=== PATIENT | female | born 1940 | race African-American/Black ===

== ENCOUNTER 2017-05-04 13:53 | Observation (INO) | payer MEDICARE, OTHER ==
--- NOTE | 2017-05-04 14:06 | ER Document Report ---
ED Medical Screen (RME) - General Chief Complaint: Hemorrhoids Stated Complaint: HEMMROIDS DR SENT PT OVER Time Seen by Provider: 05/04/17 14:05 Notes: Patient was sent from Dr. Vu's office. Dr. Vu states the patient has a large thrombosed hemorrhoid that is bleeding. He states patient's hemoglobin in November was 11.7 and today in his office it was 9.4. He is asked that we have a surgeon evaluate the patient. TRAVEL OUTSIDE OF THE [place] IN LAST 30 DAYS: No - Related Data Allergies/Adverse Reactions: No Known Allergies Allergy (Verified 05/04/17 13:59) Past Medical History - Social History Frequency of alcohol use: None Drug Abuse: None - Past Medical History Cardiac Medical History: Reports: Hx Hypercholesterolemia, Hx Hypertension Endocrine Medical History: Reports: Hx Diabetes Mellitus Type 2 Renal/ Medical History: Denies: Hx Peritoneal Dialysis GI Medical History: Reports: Hx Gastroesophageal Reflux Disease Past Surgical History: Reports: Hx Breast Surgery - Reduction, Hx Section - x3, Hx Hysterectomy - Immunizations Hx Diphtheria, Pertussis, Tetanus Vaccination: Yes Physical Exam - Vital signs Vitals: Temp Pulse Resp BP Pulse Ox 98.7 F 85 14 155/60 H 97 05/04/17 13:56 05/04/17 13:56 05/04/17 13:56 05/04/17 13:56 05/04/17 13:56 Course - Vital Signs Vital signs: Temp Pulse Resp BP Pulse Ox 98.7 F 85 14 155/60 H 97 05/04/17 13:56 05/04/17 13:56 05/04/17 13:56 05/04/17 13:56 05/04/17 13:56
--- NOTE | 2017-05-04 14:55 | ER Document Report ---
ED General - General Chief Complaint: Hemorrhoids Stated Complaint: HEMMROIDS SENT PT OVER Time Seen by Provider: 05/04/17 14:05 Mode of Arrival: Ambulatory Information source: Patient Notes: 76-year-old female presents sent in by primary care physician for evaluation by surgery for thrombosed hemorrhoid. Patient is not having any active bleeding, has had the hemorrhoid for 1 year TRAVEL OUTSIDE OF THE [place] IN LAST 30 DAYS: No - HPI Onset: Other Onset/Duration: Persistent, Worse Quality of pain: Achy Severity: Mild Pain Level: 1 Associated symptoms: Other Exacerbated by: Denies Relieved by: Denies Similar symptoms previously: No Recently seen / treated by doctor: No - Related Data Allergies/Adverse Reactions: No Known Allergies Allergy (Verified 05/04/17 13:59) Past Medical History - Social History Smoking Status: Never Smoker Cigarette use (# per day): No Chew tobacco use (# tins/day): No Smoking Education Provided: No Frequency of alcohol use: None Drug Abuse: None Family History: Reviewed & Not Pertinent - Past Medical History Cardiac Medical History: Reports: Hx Hypercholesterolemia, Hx Hypertension Endocrine Medical History: Reports: Hx Diabetes Mellitus Type 2 Renal/ Medical History: Denies: Hx Peritoneal Dialysis GI Medical History: Reports: Hx Gastroesophageal Reflux Disease Past Surgical History: Reports: Hx Breast Surgery - Reduction, Hx Section - x3, Hx Hysterectomy - Immunizations Hx Diphtheria, Pertussis, Tetanus Vaccination: Yes Review of Systems - Review of Systems Notes: REVIEW OF SYSTEMS: CONSTITUTIONAL : Denies fever, chills, or sweats. Denies recent illness. EENT: Denies eye, ear, throat, or mouth pain or symptoms. Denies nasal or sinus congestion or discharge. Denies throat, tongue, or mouth swelling or difficulty swallowing. CARDIOVASCULAR: Denies chest pain. Denies palpitations or racing or irregular heart beat. Denies ankle edema. RESPIRATORY: Denies cough, cold, or chest congestion. Denies shortness of breath, difficulty breathing, or wheezing. GASTROINTESTINAL: Denies abdominal pain or distention. Denies nausea, vomiting , or diarrhea. Denies blood in vomitus, stools, or per rectum. Denies black, tarry stools. Denies constipation. GENITOURINARY: Denies difficulty urinating, painful urination, burning, frequency, blood in urine, or discharge. FEMALE GENITOURINARY: Denies vaginal bleeding, heavy or abnormal periods, irregular periods. Denies vaginal discharge or odor. MUSCULOSKELETAL: Denies back or neck pain or stiffness. Denies joint pain or swelling. SKIN: admits to hemorrhoid bleeding yesterday HEMATOLOGIC : Denies easy bruising or bleeding. LYMPHATIC: Denies swollen, enlarged glands. NEUROLOGICAL: Denies confusion or altered mental status. Denies passing out or loss of consciousness. Denies dizziness or lightheadedness. Denies headache. Denies weakness or paralysis or loss of use of either side. Denies problems with gait or speech. Denies sensory loss, numbness, or tingling. Denies seizures. PSYCHIATRIC: Denies anxiety or stress. Denies depression, suicidal ideation, or homicidal ideation. ALL OTHER SYSTEMS REVIEWED AND NEGATIVE. PHYSICAL EXAMINATION: GENERAL: Well-appearing, well-nourished and in no acute distress. HEAD: Atraumatic, normocephalic. EYES: Pupils equal round and reactive to light, extraocular movements intact, conjunctiva are normal. ENT: Nares patent, oropharynx clear without exudates. Moist mucous membranes. NECK: Normal range of motion, supple without lymphadenopathy LUNGS: Breath sounds clear to auscultation bilaterally and equal. No wheezes rales or rhonchi. HEART: Regular rate and rhythm without murmurs ABDOMEN: Soft, nontender, nondistended abdomen. No guarding, no rebound. No masses appreciated. Female : large external thrombosed hemorrhoid noted Musculoskeletal: Normal range of motion, no pitting or edema. No cyanosis. NEUROLOGICAL: Cranial nerves grossly intact. Normal speech, normal gait. Normal sensory, motor exams PSYCH: Normal mood, normal affect. SKIN: Warm, Dry, normal turgor, no rashes or lesions noted. Dictation was performed using [employer] voice recognition software Physical Exam - Vital signs Vitals: Temp Pulse Resp BP Pulse Ox 98.7 F 85 14 155/60 H 97 05/04/17 13:56 05/04/17 13:56 05/04/17 13:56 05/04/17 13:56 05/04/17 13:56 Course - Re-evaluation Re-evalutation: 05/04/17 14:54 Dr Jones presenting to evaluate the patient 05/04/17 15:09 Patient will be admitted by surgeon to be taken to the OR - Vital Signs Vital signs: Temp Pulse Resp BP Pulse Ox 98.7 F 85 14 155/60 H 97 05/04/17 13:56 05/04/17 13:56 05/04/17 13:56 05/04/17 13:56 05/04/17 13:56 - Laboratory Result Diagrams: 05/04/17 14:27 Laboratory results interpreted by me: 05/04/17 14:27 Est GFR ( Amer) 53 L Est GFR (Non-Af Amer) 44 L Glucose 113 H Discharge - Discharge Clinical Impression: Thrombosed external hemorrhoid Condition: Stable Disposition: ADMITTED OBSERVATION Admitting Provider: Surgicalist Unit Admitted: OR
[2017-05-04 15:05] LABS: ANION GAP 12 (5-19); BLOOD UREA NITROGEN 16 mg/dL (7-20); CALCIUM 9.3 mg/dL (8.4-10.2); CARBON DIOXIDE 24 mmol/L (22-30); CHLORIDE 104 mmol/L (98-107); GLUCOSE 113 mg/dL (75-110); POTASSIUM 4.1 mmol/L (3.6-5.0); SODIUM 139.9 mmol/L (137-145)
[2017-05-04] MEDS ORDERED: FENTANYL CITRATE INJ/PF 100 MCG/2 ML AMPUL ONE (16:28)
[2017-05-04] MEDS ORDERED: ONDANSETRON HCL INJ/PF 4 MG/2 ML SDV ONE (16:28)
[2017-05-04] MEDS ORDERED: MIDAZOLAM 2 MG/2 ML INJ ONE (16:28)
[2017-05-04] MEDS ORDERED: PROPOFOL INJ 200 MG/20 ML VIAL IV ONE (16:29)
[2017-05-04] MEDS ORDERED: LIDOCAINE 2% JELLY 30 ML TUBE ONE (16:35)
[2017-05-04] MEDS ORDERED: BUPIVACAINE HCL 0.5 % INJ/PF 30 ML SDV ONE (16:35)
[2017-05-04] MEDS ORDERED: METRONIDAZOLE 500 MG/NS RTU 100 ML IV ONE ×2 (16:40→16:47)
--- NOTE | 2017-05-04 17:07 | HISTORY AND PHYSICAL E ---
History and Physical NAME: DORA LUO : 1940 AGE: 76Y ADMITTED: 05/04/2017 ROOM: ED09 REASON FOR ADMISSION: Thrombosed external hemorrhoid. HISTORY OF PRESENT ILLNESS: This 76-year-old female was sent to the hospital by her OBGYN doctor for evaluation of a thrombosed hemorrhoid. The patient states that this bleeding hemorrhoid actually started bleeding about 4-1/2 months ago but it stopped on its own. At that time the patient did not know that she had had hemorrhoids, using Tucks at the time there was no further bleeding and the patient has had no problems with her hemorrhoid until today, this morning when she noted bright red blood on her underwear and in the sheets on her bed. The patient went to see her primary care physician after the bleeding had stopped and upon examining her the patient was found to have a thrombosed external hemorrhoid for which she was sent to the emergency room for further evaluation. The patient denies any history of blood per rectum other than the one episode in the past and denied any significant pain, itching, burning usually associated with hemorrhoids. PAST MEDICAL HISTORY: The patient has a history of hypertension, hypercholesterolemia, diabetes mellitus type 2. The patient has history of gastroesophageal reflux disease, history of breast reduction surgery, section x3, and history of hysterectomy. PHYSICAL EXAMINATION: GENERAL: Reveals a 76-year-old female who appears younger than stated age who is normally nourished, normally developed, in no acute distress. VITAL SIGNS: Noted and are stable. Temperature 98.7, pulse 85, respirations 14, blood pressure 155/60, pulse ox 97% on room air. HEENT: There is conjunctival pallor or scleral icterus. Mucous membranes are moist and pink. The head is normocephalic, atraumatic. NECK: Supple without nodes, mass, thyroid, JVD, or bruits. Trachea is midline. CHEST WALL: Shows good excursion. LUNGS: Clear anteriorly with good entry bilaterally. CARDIOVASCULAR: Impulse is regular without murmurs or gallops. ABDOMEN: Obese, soft, nontender without organomegaly or masses. EXTREMITIES: Show full range of motion without edema or tenderness. RECTAL EXAM: Shows a large external hemorrhoid extending from the 2 o'clock to the 5 o'clock position, that is with an organized blood clot within which is indurated and minimally tender. There is no active bleeding noted. No other abnormalities are noted. IMPRESSION: Thrombosed hemorrhoid containing an organized thrombus. PLAN: The patient will be taken to the operating room for excision of this thrombosed external hemorrhoid. DICTATING PHYSICIAN: BISHOP TILLEY M.D. [id number] PHY#: [id number] ID: [id number] JOB#: [id number] ACCT: [id number] cc:BISHOP TILLEY M.D. >
[2017-05-04] MEDS ORDERED: MORPHINE SULFATE 10 MG/ML INJ IV PRN ×2 (17:15→19:49)
[2017-05-04] MEDS ORDERED: DIPHENHYDRAMINE HCL 50 MG/ML VIAL IV PRN (17:15)
[2017-05-04] MEDS ORDERED: MEPERIDINE HCL/PF INJ 25 MG/1 ML DISP.SYRIN IV PRN (17:15)
[2017-05-04] MEDS ORDERED: PROMETHAZINE HCL INJ 25 MG/1 ML VIAL IV PRN (17:15)
[2017-05-04] MEDS ORDERED: FENTANYL CITRATE INJ/PF 100 MCG/2 ML AMPUL IV PRN ×3 (17:15)
--- NOTE | 2017-05-04 19:47 | OPERATIVE REPORT E ---
Operative Report NAME: DORA LUO : 1940 AGE: 76Y DATE OF SURGERY: 05/04/2017 ROOM: 211 PREOPERATIVE DIAGNOSIS: SUSPECTED THROMBOSED EXTERNAL HEMORRHOID. POSTOPERATIVE DIAGNOSIS: SQUAMOUS CELL CARCINOMA OF THE RECTUM. OPERATION: Incisional biopsy of squamous cell carcinoma of the rectum of the anorectal region. SURGEON: BISHOP TILLEY M.D. ANESTHESIA: MAC COMPLICATIONS: None. CONDITION: Stable. FINDINGS: Patient had what was suspected to be a thrombosed hemorrhoid and turned out to be a squamous cell carcinoma proven by incisional biopsy. PROCEDURE: The patient was brought to the operating suite and placed in the supine position on the operating table. Monitoring devices were attached. IV sedation was administered and the patient was then placed in the lithotomy position. Patient's pelvic and vaginal rectal region was prepped and draped in the usual sterile manner. Then an anal speculum was placed and this mass was reevaluated. Upon evaluation under sedation revealed this to be a lobulated mass that extended up into 4 to 5 cm above the anal verge. This mass was soft and not filled with blood clot but filled with tumor. After timeout was achieved, local anesthesia was injected at the base of the tumor and on the surface. We then made an elliptical incision within the mass and submitted a central slice of the tumor mass. This was sent for frozen section. After doing an incisional biopsy, we then reapproximated the wound edges with interrupted 2-0 Vicryl sutures. There was no bleeding noted. After completing the closure, 4 x 4's and mesh panties were placed and the procedure was terminated. Pathology report revealed this to be a squamous cell carcinoma. The family has been informed and patient will be worked up and staged and will need diverting colostomy, radiation therapy, and subsequently perineal resection. DICTATING PHYSICIAN: BISHOP TILLEY M.D. [id number] PHY#: [id number] ID: [id number] JOB#: [id number] ACCT: [id number] cc:BISHOP TILLEY M.D. >
[2017-05-04] MEDS ORDERED: ONDANSETRON HCL INJ/PF 4 MG/2 ML SDV IV PRN (19:48)
[2017-05-04] MEDS: OXYCODONE-ACETAMINOPHEN 5-325 MG TABLET PO PRN (20:46)
[2017-05-04] MEDS ORDERED: (PENDING PHARMACY ID) (Sitagliptin Phos/Metformin Hcl [Janumet 50-500 Mg Tablet] 1 EACH) PO SCH (22:00)
[2017-05-04] MEDS ORDERED: METFORMIN HCL 500 MG TABLET PO SCH (22:00)
[2017-05-04] MEDS ORDERED: SITAGLIPTIN PHOSPHATE 50 MG TABLET PO SCH (22:00)
[2017-05-05] MEDS: OXYCODONE-ACETAMINOPHEN 5-325 MG TABLET PO PRN (01:38)
--- NOTE | 2017-05-05 09:45 | PDOC PROGRESS REPORT ---
Subjective Progress Note for:: 05/05/17 Subjective:: POD 1 s/p incisional biopsy of anal mass returned as squamous cell carcinoma of the rectum. Patient without pain and tolerating a diet. Normal BMs. Physical Exam Vital Signs: Temp Pulse Resp BP Pulse Ox 98.4 F 84 16 135/45 H 97 05/05/17 09:33 05/05/17 09:33 05/05/17 09:33 05/05/17 09:33 05/05/17 09:33 General appearance: PRESENT: no acute distress, well-developed, well-nourished Head exam: PRESENT: atraumatic, normocephalic Eye exam: PRESENT: conjunctiva pink. ABSENT: conjunctival injection Mouth exam: PRESENT: moist, tongue midline. ABSENT: dry mucosa Respiratory exam: PRESENT: symmetrical, unlabored. ABSENT: accessory muscle use , tachypnea Vascular exam: PRESENT: normal capillary refill GI/Abdominal exam: PRESENT: soft. ABSENT: distended, firm, guarding, rebound, rigid, tenderness Extremities exam: PRESENT: full ROM. ABSENT: calf tenderness Musculoskeletal exam: PRESENT: ambulatory, full ROM Neurological exam: PRESENT: alert, awake, oriented to person, oriented to place , oriented to time, oriented to situation, CN II-XII grossly intact. ABSENT: motor sensory deficit Assessment & Plan - Diagnosis (1) Rectal cancer Is this a current diagnosis for this admission?: Yes Plan: CT of abdomen and pelvis with oral/IV and IA contrast. Short term outpatient evaluation by colorectal surgery with tumor board to direct treatment. Will require perianal US for staging. Patient advised to maintain normal bowel function with daily bowel regimen of fiber supplement and stool softener. With any symptoms of obstruction patient instructed to follow up in ER. Home today after CT and outpatient referral arrangements made.
[2017-05-05] MEDS ORDERED: ASPIRIN 81 MG TABLET, CHEWABLE PO SCH (10:00)
[2017-05-05] MEDS ORDERED: VERAPAMIL HCL 240 MG TABLET.SA PO SCH (10:00)
--- NOTE | 2017-05-05 14:36 | PDOC DISCHARGE SUMMARY ---
Discharge Summary (SDC) - Discharge Final Diagnosis: Rectal Cancer, unstaged Date of Surgery: 05/04/17 Discharge Date: 05/05/17 Condition: Good Treatment or Instructions: Follow up outpatient with Colorectal surgery 05/12/2017 Dr. Gonzalez with alaina rodriguez Referrals: ALAINA RODRIGUEZ,DR RUIZ [Other] - 05/12/17 11:00 am (Please use the East Entrance. If you have any questions about your appointment please call the office directly at [phone]) Discharge Diet: As Tolerated Additional Home Respiratory Instructions: Bowel regimen using fiber supplement and OTC stool softeners Discharge Activity: Activity As Tolerated Home Care Assistance: None Needed Report the Following to Your Physician Immediately: Shortness of Breath, Nausea , Vomiting, Increase in Pain - any pain, none at the moment, Fever over 101 Degrees, Unusual Bleeding, Swelling, Warmth, Tingling Sensation, Visual Disturbance, Wheezing, Urinary Infection Signs
[2017-05-05 15:43] VITALS: BP 145/84
--- NOTE | 2017-05-05 16:47 | RADIOLOGY REPORT (SQ) ---
EXAM DESCRIPTION: CT ABD/PELVIS WITH IV ORAL COMPLETED DATE/TIME: 05/05/2017 2:52 pm REASON FOR STUDY: Rectal cancer D37.4 NEOPLASM OF UNCERTAIN BEHAVIOR OF COLON COMPARISON: None. TECHNIQUE: CT scan of the abdomen and pelvis performed using helical scanning technique with dynamic intravenous contrast injection. No oral contrast. Images reviewed with lung, soft tissue, and bone windows. Reconstructed coronal and sagittal MPR images reviewed. Delayed images for evaluation of the urinary system also acquired. All images stored on PACS. All CT scanners at this facility use dose modulation, iterative reconstruction, and/or weight based d osing when appropriate to reduce radiation dose to as low as reasonably achievable (ALARA). [facility]: Dose Right [facility]: CareDose [facility]: Dose Right [facility]: Teradose 4D [facility]: Gun.io CONTRAST TYPE AND DOSE: contrast/concentration: Isovue 370.00 mg/ml; Total Contrast Delivered: 93.0 ml; Total Saline Delivered: 32.8 ml RENAL FUNCTION: BUN 16 creatinine 1.2 RADIATION DOSE: Up-to-date CT equipment and radiation dose reduction techniques were employed. CTDIv ol: 17.3 - 19.9 mGy. DLP: 1802 mGy-cm.. LIMITATIONS: None. FINDINGS: LOWER CHEST: Small hiatal hernia. LIVER: Normal size. No masses. No dilated ducts. SPLEEN: Normal size. No focal lesions. PANCREAS: No masses. No significant calcifications. No adjacent inflammation or peripancreatic fluid collections. Pancreatic duct not dilated. GALLBLADDER: No identified stones by CT criteria. No inflammatory changes to suggest cholecystitis. ADRENAL GLANDS: Subcentimeter left adrenal nodule. RIGHT KIDNEY AND URETER: No solid masses. No significant calcifications. No hydronephrosis or hyd roureter. LEFT KIDNEY AND URETER: No solid masses. No significant calcifications. No hydronephrosis or hydr oureter. AORTA AND VESSELS: No aneurysm. No dissection. Renal arteries, SMA, celiac without stenosis. RETROPERITONEUM: No retroperitoneal adenopathy, hemorrhage or masses. BOWEL AND PERITONEAL CAVITY: Diverticulosis especially descending and sigmoid colon. No free air. N o masses or inflammatory changes. No free fluid or peritoneal masses. APPENDIX: Normal. PELVIS: No mass. No free fluid. Normal bladder. ABDOMINAL WALL: Ventral hernia containing fat. BONES: No acute findings. OTHER: Inflammation in the perianal soft tissues. No organized fluid collection. IMPRESSION: 1. No acute findings in the abdomen or pelvis. 2. Dermatologic inflammation perianal soft tissues. TECHNICAL DOCUMENTATION: JOB ID: [id number] Quality ID # [id number]: Final reports with documentation of one or more dose reduction techniques (e.g., Au tomated exposure control, adjustment of the mA and/or kV according to patient size, use of iterative reconstruction technique) 2010 [employer]- All Rights Reserved
== END 2017-05-05 16:00 | disposition home or self-care (01) ==
LOC: ER 13:53 → EH 15:18 → UNDOADMOB 15:18 → EH 18:40 → 2N 18:48
PROVIDERS: ATTEND Surgery
PROC: 0DBP0ZX Excision of Rectum, Open Approach, Diagnostic (ICD-10-PCS; principal; 2017-05-04 17:15)
DX: C21.8 Malignant neoplasm of overlapping sites of rectum, anus and anal canal (principal); E66.9 Obesity, unspecified; Z90.710 Acquired absence of both cervix and uterus; Z68.31 Body mass index [BMI] 31.0-31.9, adult
CPT/HCPCS: 99284; 36415; 80048; 88305 ×2; 88331 ×2; 74177; 45100; J2250; A9270 ×4; J3010; J2405; J2704; 902

== ENCOUNTER 2017-06-02 07:54 | Observation (INO) | payer MEDICARE, OTHER ==
[2017-06-01 09:24] LABS: HEMATOCRIT 36.2 % (36.0-47.0); HEMOGLOBIN 11.8 g/dL (12.0-15.5); HGB HCT DIFFERENCE -0.8; MEAN CORPUSCULAR HEMOGLOBIN 26.7 pg (27.0-33.4); MEAN CORPUSCULAR HGB CONC 32.5 g/dL (32.0-36.0); MEAN CORPUSCULAR VOLUME 82 fl (80-97); RED BLOOD COUNT 4.41 10^6/uL (3.72-5.28); RED CELL DISTRIBUTION WIDTH 16.2 % (11.5-14.0); WHITE BLOOD COUNT 9.2 10^3/uL (4.0-10.5)
[~2017-06-02 07:54] MED LIST: ACETAMINOPHEN 325 MG TABLET PO PRN; CEFAZOLIN 1 GM/D5W RTU 1 GM/50 ML RTUPB IV PRN; NORMAL SALINE 1000 ML (RENAL PATIENTS) IV PRN
[2017-06-02] MEDS ORDERED: LIDOCAINE 1%/EPINEPHRINE INJ 20 ML VIAL ONE (13:23)
[2017-06-02] MEDS ORDERED: FENTANYL CITRATE INJ/PF 100 MCG/2 ML AMPUL ONE ×2 (13:24→18:57)
[2017-06-02] MEDS ORDERED: PROPOFOL INJ 200 MG/20 ML VIAL IV ONE ×3 (13:25→18:58)
[2017-06-02] MEDS ORDERED: MIDAZOLAM 2 MG/2 ML INJ ONE ×2 (13:25→18:57)
[2017-06-02] MEDS ORDERED: FENTANYL CITRATE INJ/PF 100 MCG/2 ML AMPUL IV PRN ×3 (14:43)
[2017-06-02] MEDS ORDERED: MEPERIDINE HCL/PF INJ 25 MG/1 ML DISP.SYRIN IV PRN (14:43)
[2017-06-02] MEDS ORDERED: DIPHENHYDRAMINE HCL 50 MG/ML VIAL IV PRN (14:43)
[2017-06-02] MEDS ORDERED: OXYCODONE-ACETAMINOPHEN 5-325 MG TABLET PO PRN ×3 (14:43→15:42)
[2017-06-02] MEDS ORDERED: MORPHINE SULFATE 10 MG/ML INJ IV PRN (14:43)
[2017-06-02] MEDS ORDERED: PROMETHAZINE HCL INJ 25 MG/1 ML VIAL IV PRN ×2 (14:43)
[2017-06-02] MEDS ORDERED: LIDOCAINE 2% JELLY 30 ML TUBE ONE (15:04)
--- NOTE | 2017-06-02 15:42 | PDOC DISCHARGE SUMMARY ---
Discharge Summary (SDC) - Discharge Final Diagnosis: rectal cancer Date of Surgery: 06/02/17 Discharge Date: 06/02/17 Condition: Stable Treatment or Instructions: Wound Care: You may shower in 48 hours. Do not remove paper bandaids (steri strips). Steri strips may get wet with warm water/soap. Pat area dry. Do not scrub. Steri strips will be removed at follow up visit. You may take Toradol 10 mg one pill every six hours as needed for pain. Call clinic or go to ER if you have shortness of breath, swelling of incision sites or neck, fever or unusual bleeding Follow up at [facility] in one week [facility]: [phone] Prescriptions: Ketorolac Tromethamine [Toradol 10 mg Tablet] 10 mg PO Q6HP PRN #25 tablet PRN Reason: Referrals: SALVADOR HOFFMAN MD [Primary Care Provider] - Discharge Diet: As Tolerated Discharge Activity: Activity As Tolerated Report the Following to Your Physician Immediately: Nausea, Vomiting, Fever over 101 Degrees, Unusual Bleeding, Swelling, Drainage-Foul Smelling
[2017-06-02] MEDS ORDERED: ONDANSETRON HCL INJ/PF 4 MG/2 ML SDV IV PRN (15:43)
--- NOTE | 2017-06-02 15:54 | Operative Report ---
Operative Report DATE OF SURGERY: 06/02/17 PREOPERATIVE DIAGNOSIS: Squamous cell carcinoma of the anus POSTOPERATIVE DIAGNOSIS: Same OPERATION: 1. Ultrasound directed insertion of right internal jugular vein single lumen port catheter. 2. Interpretation of intraoperative fluoroscopy. 3. Exam under anesthesia of the anal canal, excisional biopsies of anal carcinoma 2 SURGEON: LUPE VALDES 1ST MANAGER TRANSPORT: [place] KUNZ ANESTHESIA: LMAC TISSUE REMOVED OR ALTERED: Biopsies anal canal 2 COMPLICATIONS: None ESTIMATED BLOOD LOSS: 25 cc INTRAOPERATIVE FINDINGS: See below PROCEDURE: The patient was seen in the preop holding area with the right subclavian area was marked by Dr. rushing. She was then taken to the main operating room where LMAC anesthesia was induced. Neck was extended, rest taped in a caudad position in the right neck, and chest wall were prepped and draped sterile fashion. Surgical plan and surgical timeout conducted. Right neck was scanned with a variable frequency linear transducer. The right internal jugular vein was felt to be suitable for cannulation. Skin was anesthetized 1% plain lidocaine, micro needle and wire threaded into the right internal jugular vein real-time ultrasound-guided. A suitable site for the port was chosen in the right subclavian position. Skin was anesthetized, 3-1/2 cm incision was made in the subclavian position and a port pocket developed large enough to accommodate a single chamber Cdymro-a-Ybfw catheter. Catheter was then turned to the appropriate length, tunneled between the 2 wounds, hooked to the port with the plastic ring the port was tucked into the pocket. The microwire was switched over to a conventional 0.035 guidewire, then the dilator and introducer sheath threaded over the guidewire. Dilator and wire removed, and catheter into the right internal jugular vein real-time using fluoroscopy as a guide. Strip away sheath was removed and the cath in good position with the tip in the superior vena cava. Kinking of the catheter. The catheter was aspirated and flushed with heparinized saline. The wound was closed with a 3-0 Vicryl, benzoin and Steri- Strips. We now adjusted the patient such that she was in lithotomy position, legs in stirrups and name exposed. It was prepped with Betadine, second timeout conducted. Findings were significant for an open overall granulating versus fungating lesion in the patient's left posterior lateral position. There is a well- defined geographic margin around this malignancy. By digital palpation the tumor extended up into the anal canal is mildly 6-7 cm. It was localized to the left lateral posterior wall. The skin surrounding the component of the tumor was anesthetized 1% lidocaine plain and a small ellipse of tissue encompassing the renal skin and the tumor was excised with a 15 blade. The specimen was taken personally by Dr. Valdes to the pathology lab work was analyzed by Dr. Raj Traore. Frozen section confirmed squamous cell carcinoma but the diagnosis of invasive this could not be reached on the specimen. For Dr. Valdes return to the operating room scrubbed in, and proceeded to form a second incisional biopsy of the tumor up into the anal canal. We dilated the anal canal to accommodate a medium size Diaz retractor. I then anesthetized the perianal and perirectal tissue quarter percent Marcaine. I then excised a small piece of in conjunction with intact low rectal mucosa. Gentle pressure was held at the excision site and the specimen was taken again by Dr. Valdes to the allergy lab real-time with the specimen was analyzed by Drs. Traore and Virgie on frozen section. Virgie believe the specimen was adequate for interpretation, and felt that the area for invasiveness was likely met. We did not believe further biopsy was indicated at this point. The patient was reinspected by Dr. Valdes and there was no evidence of active bleeding from the second incisional biopsy site. Further sutures were placed. Gelfoam lidocaine pack was placed in the anal canal. Patient tolerated the procedure well taken recovery in stable condition. The physician assistant basketball coach, Ms. Srivastava, provided assistance during this case by: Assisting retracting tissue, instillation of local anesthesia.
--- NOTE | 2017-06-02 16:34 | RADIOLOGY REPORT (SQ) ---
EXAM DESCRIPTION: FLUORO/CV PLACEMENT COMPLETED DATE/TIME: 06/02/2017 2:58 pm REASON FOR STUDY: PORTACATH PLCMT LEFT SIDE ASSISTED WITH FLUORO IN OR C21.0 MALIGNANT NEOPLASM OF ANUS, UNSPECIFIED COMPARISON: None. FLUOROSCOPY TIME: 0.2 minutes 4 digital images saved to PACS. TECHNIQUE: Intra-operative images acquired during surgical procedure to evaluate progress. NUMBER OF IMAGES: 4 digital images LIMITATIONS: None. FINDINGS: Intra procedural imaging and fluoro during placement of a right-sided central venous darrin ter. Please see the operative report for further details IMPRESSION: Intra procedural imaging and fluoro COMMENT: Quality ID [id number]: Final reports for procedures using fluoroscopy that document radiation exp osure indices, or exposure time and number of fluorographic images (if radiation exposure indices are not available) Please consult full operative report of the attending physician for description of the procedure. TECHNICAL DOCUMENTATION: JOB ID: [id number] [employer]- All Rights Reserved
[2017-06-02] MEDS ORDERED: KETAMINE HCL INJ 500 MG/10 ML VIAL ONE (18:57)
[2017-06-02] MEDS ORDERED: EPHEDRINE SULFATE INJ 50 MG/1 ML AMPULE ONE (18:58)
[2017-06-02] MEDS ORDERED: NORMAL SALINE 1000 ML 1,000 ML IV PRN (19:10)
[2017-06-02 19:22] LABS: HEMATOCRIT 25.8 % (36.0-47.0); HGB HCT DIFFERENCE -0.6; MEAN CORPUSCULAR HGB CONC 32.7 g/dL (32.0-36.0); MEAN CORPUSCULAR VOLUME 83 fl (80-97); RED BLOOD COUNT 3.12 10^6/uL (3.72-5.28); RED CELL DISTRIBUTION WIDTH 15.8 % (11.5-14.0); WHITE BLOOD COUNT 11.4 10^3/uL (4.0-10.5)
[2017-06-02 19:30] LABS: HEMOGLOBIN 8.4 g/dL (12.0-15.5)
[2017-06-02 19:36] LABS: ANION GAP 8 (5-19); BLOOD UREA NITROGEN 24 mg/dL (7-20); CALCIUM 8.6 mg/dL (8.4-10.2); CARBON DIOXIDE 23 mmol/L (22-30); CHLORIDE 109 mmol/L (98-107); CREATININE RESULT 1.23 mg/dL (0.52-1.25); GLUCOSE 190 mg/dL (75-110); POTASSIUM 4.2 mmol/L (3.6-5.0); SODIUM 139.8 mmol/L (137-145)
[2017-06-02] MEDS ORDERED: DEXTROSE 40% GEL 15 GM TUBE PO PRN ×2 (19:37)
[2017-06-02] MEDS ORDERED: DEXTROSE 50%-WATER 25 GM/50 ML DISP.SYRIN IV PRN ×2 (19:37)
[2017-06-02] MEDS ORDERED: GLUCAGON,HUMAN RECOMB 1 MG INJ IM PRN (19:37)
--- NOTE | 2017-06-02 19:44 | PDOC PROGRESS REPORT ---
Subjective Progress Note for:: 06/02/17 Subjective:: Postoperatively patient developed clots per rectum. She remained hemodynamically stable was transferred to the ambulatory surgery unit. He had several bowel movements with clots. She got up with her daughter's assistance, unwitnessed by hospital staff, and collapsed "" hitting her head; and had a heart rate of 30, but never became hypotensive. He was stabilized with an additional IV in her foot and Keisha arrived on the scene. Patient remained hemodynamically stable and neurologically intact thereafter. Physical Exam Vital Signs: Temp Pulse Resp BP Pulse Ox 97.8 F 78 16 158/82 H 98 06/02/17 16:45 06/02/17 16:45 06/02/17 16:45 06/02/17 16:45 06/02/17 16:45 Intake & Output 06/01/17 06/02/17 06/03/17 06:59 06:59 06:59 Intake Total 1010 Output Total 310 Balance 700 Weight 85.73 kg 85.73 kg General appearance: PRESENT: mild distress, other - Patient did not appear cool or clammy. Heart rate in the 70s. Rectal exam: PRESENT: other - No evidence of active bleeding or clots in the rectal canal as examined by Dr. Valdes on 2 occasions one at 710 and 1 at 7: 30 PM Psychiatric exam: PRESENT: other - Patient was alert and oriented 4. SHe was in no acute distress. Results Laboratory Results: 06/02/17 19:12 06/02/17 19:12 WBC 11.4 H RBC 3.12 L Hgb 8.4 L D Hct 25.8 L MCV 83 MCH 27.0 MCHC 32.7 RDW 15.8 H Plt Count 202 Impressions: Guidance Fluoroscopy 06/02/17 00:00 IMPRESSION: Intra procedural imaging and fluoro Assessment & Plan - Diagnosis (1) Anal cancer Is this a current diagnosis for this admission?: Yes Plan: Patient is several hours status post exam under anesthesia, repeat internal and external squamous cell carcinoma tumor biopsies, along with Jgjhuu-m-Peva catheter placement. Postoperatively she had no bleeding, with subsequent syncopal episode. Patient now stabilized. Plan: 1. Patient has been taken now from ambulatory surgery to the CT scanner where a nonenhanced head scan was no gross evidence of intracerebral hemorrhage; this is a preliminary interpretation. 2. We will admit the patient for observation, keep her n.p.o. and IV fluids. Her hemoglobin has dropped approximately 3 g. She is hemodynamically stable, we will withhold transfusion at this time. Blood will be set up for and a repeat hemoglobin will be checked in approximately 11 hours. 3. I have reinserted at approximately 7:30 PM a Gelfoam plug in her anal canal to localize any raw oozing sites that may bleed in the future. She has a large exposed open area to her anal canal tumor. 4. I have explained the plan to the patient as well as her family who are present in the waiting room this evening. 5. Care of the patient has been transferred to the surgical list is aware of the treatment plan. - Time Time Spent with patient: 25-34 minutes Critical Time spent with patient: 15-24 minutes Medications reviewed and adjusted accordingly: Yes Anticipated discharge: Home
--- NOTE | 2017-06-02 19:58 | RADIOLOGY REPORT (SQ) ---
EXAM DESCRIPTION: CT HEAD WITHOUT COMPLETED DATE/TIME: 06/02/2017 7:15 pm REASON FOR STUDY: Fall C21.0 MALIGNANT NEOPLASM OF ANUS, UNSPECIFIED S09.90XA UNSPECIFIED INJURY OF HEAD, INITIAL ENCOUNTER COMPARISON: None. TECHNIQUE: Axial images acquired through the brain without intravenous contrast. Images reviewed wi th bone, brain and subdural windows. Images stored on PACS. All CT scanners at this facility use dose modulation, iterative reconstruction, and/or weight based d osing when appropriate to reduce radiation dose to as low as reasonably achievable (ALARA). [facility]: Dose Right [facility]: CareDose [facility]: Dose Right [facility]: Teradose 4D [facility]: SignalSet RADIATION DOSE: CT Rad equipment meets quality standard of care and radiation dose reduction techniq ues were employed. CTDIvol: 64.6 mGy. DLP: 1034 mGy-cm. mGy. LIMITATIONS: None. FINDINGS: VENTRICLES: Normal size and contour. CEREBRUM: No masses. No hemorrhage. No midline shift. No evidence for acute infarction. Normal gra y/white matter differentiation. No areas of low density in the white matter. CEREBELLUM: No masses. No hemorrhage. No alteration of density. No evidence for acute infarction. EXTRAAXIAL SPACES: No fluid collections. No masses. ORBITS AND GLOBE: No intra- or extraconal masses. Normal contour of globe without masses. CALVARIUM: No fracture. PARANASAL SINUSES: No fluid or mucosal thickening. SOFT TISSUES: No mass or hematoma. OTHER: No other significant finding. IMPRESSION: No acute findings. EVIDENCE OF ACUTE STROKE: NO. COMMENT: Quality ID # [id number]: Final reports with documentation of one or more dose reduction techniques (e.g., Automated exposure control, adjustment of the mA and/or kV according to patient size, use of iterative reconstruction technique) TECHNICAL DOCUMENTATION: JOB ID: [id number] [place]-72 2010 [employer] ([employer])- All Rights Reserved
[2017-06-03 05:50] LABS: ABSOLUTE BASOPHILS # (AUTO) 0.1 10^3/uL (0.0-0.2); ABSOLUTE EOSINOPHILS # (AUTO) 0.1 10^3/uL (0.0-0.6); ABSOLUTE LYMPHOCYTES (AUTO) 2.5 10^3/uL (0.5-4.7); ABSOLUTE MONOCYTES (AUTO) 0.6 10^3/uL (0.1-1.4); ABSOLUTE NEUT (AUTO) 5.3 10^3/uL (1.7-8.2); ANION GAP 10 (5-19); BASOPHILS % (AUTO) 0.8 % (0-2); BLOOD UREA NITROGEN 25 mg/dL (7-20); CALCIUM 8.7 mg/dL (8.4-10.2); CARBON DIOXIDE 23 mmol/L (22-30); CHLORIDE 107 mmol/L (98-107); CREATININE RESULT 1.06 mg/dL (0.52-1.25); EOSINOPHILS % (AUTO) 1.3 % (0-6); GLUCOSE 117 mg/dL (75-110); HEMATOCRIT 22.1 % (36.0-47.0); HGB HCT DIFFERENCE 0.1; LYMPHOCYTES % (AUTO) 28.6 % (13-45); MEAN CORPUSCULAR HEMOGLOBIN 27.2 pg (27.0-33.4); MEAN CORPUSCULAR HGB CONC 33.2 g/dL (32.0-36.0); MEAN CORPUSCULAR VOLUME 82 fl (80-97); MONOCYTES % (AUTO) 6.9 % (3-13); POTASSIUM 4.4 mmol/L (3.6-5.0); RED CELL DISTRIBUTION WIDTH 15.9 % (11.5-14.0); SEGMENTED NEUTROPHILS % (AUTO) 62.4 % (42-78); SODIUM 139.5 mmol/L (137-145); WHITE BLOOD COUNT 8.6 10^3/uL (4.0-10.5)
[2017-06-03 05:55] LABS: HEMOGLOBIN 7.4 g/dL (12.0-15.5)
--- NOTE | 2017-06-03 08:30 | PDOC PROGRESS REPORT ---
Subjective Progress Note for:: 06/03/17 Subjective:: no pain feels tired Physical Exam Vital Signs: Temp Pulse Resp BP Pulse Ox 97.9 F 86 16 133/59 H 99 06/03/17 05:56 06/03/17 05:56 06/03/17 05:56 06/03/17 05:56 06/03/17 05:56 Intake & Output 06/02/17 06/03/17 06/04/17 06:59 06:59 06:59 Intake Total 1760 Output Total 760 Balance 1000 Weight 85.73 kg 85.275 kg GI/Abdominal exam: PRESENT: other - soft, nontender Results Laboratory Results: 06/03/17 04:47 06/03/17 04:47 06/02/17 06/02/17 06/02/17 19:12 19:12 21:07 WBC 11.4 H RBC 3.12 L Hgb 8.4 L D Hct 25.8 L MCV 83 MCH 27.0 MCHC 32.7 RDW 15.8 H Plt Count 202 Seg Neutrophils % Lymphocytes % Monocytes % Eosinophils % Basophils % Absolute Neutrophils Absolute Lymphocytes Absolute Monocytes Absolute Eosinophils Absolute Basophils Sodium 139.8 Potassium 4.2 Chloride 109 H Carbon Dioxide 23 Anion Gap 8 BUN 24 H Creatinine 1.23 Est GFR ( Amer) 51 L Est GFR (Non-Af Amer) 42 L Glucose 190 H Calcium 8.6 Blood Type A POSITIVE Antibody Screen NEGATIVE 06/03/17 06/03/17 04:47 04:47 WBC 8.6 RBC 2.70 L Hgb 7.4 L Hct 22.1 L MCV 82 MCH 27.2 MCHC 33.2 RDW 15.9 H Plt Count 188 Seg Neutrophils % 62.4 Lymphocytes % 28.6 Monocytes % 6.9 Eosinophils % 1.3 Basophils % 0.8 Absolute Neutrophils 5.3 Absolute Lymphocytes 2.5 Absolute Monocytes 0.6 Absolute Eosinophils 0.1 Absolute Basophils 0.1 Sodium 139.5 Potassium 4.4 Chloride 107 Carbon Dioxide 23 Anion Gap 10 BUN 25 H Creatinine 1.06 Est GFR ( Amer) > 60 Est GFR (Non-Af Amer) 50 L Glucose 117 H Calcium 8.7 Blood Type Antibody Screen Impressions: Guidance Fluoroscopy 06/02/17 00:00 IMPRESSION: Intra procedural imaging and fluoro Head CT 06/02/17 00:00 IMPRESSION: No acute findings. EVIDENCE OF ACUTE STROKE: NO.
--- NOTE | 2017-06-03 08:32 | Progress Note ---
Provider Note Provider Note: hb 7.4 g transfuse 2 units of PRBC
[2017-06-03] MEDS: INSULIN REG, HUMAN 100 UNIT/ML 3 ML VIAL (PYX) SUBCUT PRN ×3 (13:05→21:55)
[2017-06-03 19:12] LABS: ABSOLUTE BASOPHILS # (AUTO) 0.1 10^3/uL (0.0-0.2); ABSOLUTE EOSINOPHILS # (AUTO) 0.2 10^3/uL (0.0-0.6); ABSOLUTE LYMPHOCYTES (AUTO) 2.2 10^3/uL (0.5-4.7); ABSOLUTE MONOCYTES (AUTO) 0.9 10^3/uL (0.1-1.4); ABSOLUTE NEUT (AUTO) 6.1 10^3/uL (1.7-8.2); BASOPHILS % (AUTO) 0.7 % (0-2); EOSINOPHILS % (AUTO) 1.8 % (0-6); HEMATOCRIT 32.8 % (36.0-47.0); HGB HCT DIFFERENCE 0.8; LYMPHOCYTES % (AUTO) 23.8 % (13-45); MEAN CORPUSCULAR HEMOGLOBIN 28.5 pg (27.0-33.4); MEAN CORPUSCULAR VOLUME 84 fl (80-97); MONOCYTES % (AUTO) 9.5 % (3-13); RED BLOOD COUNT 3.92 10^6/uL (3.72-5.28); RED CELL DISTRIBUTION WIDTH 15.7 % (11.5-14.0); SEGMENTED NEUTROPHILS % (AUTO) 64.2 % (42-78); WHITE BLOOD COUNT 9.4 10^3/uL (4.0-10.5)
[2017-06-03 19:13] LABS: HEMOGLOBIN 11.2 g/dL (12.0-15.5)
[2017-06-04 06:26] LABS: ABSOLUTE EOSINOPHILS # (AUTO) 0.2 10^3/uL (0.0-0.6); ABSOLUTE LYMPHOCYTES (AUTO) 2.2 10^3/uL (0.5-4.7); ABSOLUTE MONOCYTES (AUTO) 0.7 10^3/uL (0.1-1.4); ABSOLUTE NEUT (AUTO) 6.1 10^3/uL (1.7-8.2); BASOPHILS % (AUTO) 0.3 % (0-2); EOSINOPHILS % (AUTO) 2.4 % (0-6); HEMATOCRIT 29.2 % (36.0-47.0); HGB HCT DIFFERENCE 0.8; LYMPHOCYTES % (AUTO) 23.3 % (13-45); MEAN CORPUSCULAR HEMOGLOBIN 28.4 pg (27.0-33.4); MEAN CORPUSCULAR HGB CONC 34.2 g/dL (32.0-36.0); MEAN CORPUSCULAR VOLUME 83 fl (80-97); MONOCYTES % (AUTO) 7.9 % (3-13); RED BLOOD COUNT 3.52 10^6/uL (3.72-5.28); RED CELL DISTRIBUTION WIDTH 15.5 % (11.5-14.0); SEGMENTED NEUTROPHILS % (AUTO) 66.1 % (42-78); WHITE BLOOD COUNT 9.3 10^3/uL (4.0-10.5)
[2017-06-04 06:38] LABS: ANION GAP 9 (5-19); BLOOD UREA NITROGEN 18 mg/dL (7-20); CALCIUM 8.5 mg/dL (8.4-10.2); CARBON DIOXIDE 25 mmol/L (22-30); CHLORIDE 105 mmol/L (98-107); CREATININE RESULT 1.09 mg/dL (0.52-1.25); GLUCOSE 141 mg/dL (75-110); SODIUM 139.4 mmol/L (137-145)
[2017-06-04] MEDS: INSULIN REG, HUMAN 100 UNIT/ML 3 ML VIAL (PYX) SUBCUT PRN ×2 (08:32→12:27)
[2017-06-04 13:11] VITALS: BP 151/58
--- NOTE | 2017-06-04 16:03 | DISCHARGE SUMMARY E ---
Discharge Summary NAME: DORA LUO : 1940 AGE: 77Y ADMITTED: 06/02/2017 DISCHARGED: 06/04/2017 ADMITTING DIAGNOSIS: History of rectal bleeding, status post rectal biopsy. The patient has a history of possible squamous cell malignancy. She had a biopsy done, rectal area. After that, the patient developed bleeding in the PACU. For that reason, she was admitted to the hospital for monitoring and management. HOSPITAL COURSE: After admission through the PACU, on the floor, she continued to have rectal bleeding, bloody bowel movement for 3 different times. After that, she was continued to be monitored. Hemoglobin was monitored. She had a hemoglobin drop from 11 to almost 7.4. Yesterday, I gave her 2 units of transfusion. Today, hemoglobin came up to 10 grams and then subsequently she had a bowel movement 2 times today, which was normal, clear. No more bleeding. PHYSICAL EXAMINATION: GENERAL: The patient appeared to be completely comfortable, afebrile. VITAL SIGNS: All her vital signs stable. ABDOMINAL EXAM: Soft, nontender. RECTAL AREA: Clean. At this point, no active bleeding. IMPRESSION OVERALL: Rectal bleeding postop, completely resolved. She is doing well. PLAN: She will follow up with Dr. Valdes in outpatient clinic in 2 weeks. DICTATING PHYSICIAN: LORETTA LOPEZ M.D. [id number] PHY#: [id number] ID: [id number] JOB#: [id number] ACCT: [id number] cc:Sushma FRANKLIN M.D. >
== END 2017-06-04 14:04 | disposition home or self-care (01) ==
LOC: OROUT 11:19 → EDSTATUS 13:30 → 4N 19:08 → OROUT 19:59 → 4N 06-04 14:04 → OROUT 06-04 14:04
PROVIDERS: ADMIT Surgery; ATTEND Surgery
PROC: B518ZZA Fluoroscopy of Superior Vena Cava, Guidance (ICD-10-PCS; 2017-06-02)
PROC: B548ZZA Ultrasonography of Superior Vena Cava, Guidance (ICD-10-PCS; 2017-06-02)
PROC: 0DBQ7ZX Excision of Anus, Via Natural or Artificial Opening, Diagnostic (ICD-10-PCS; 2017-06-02)
PROC: 0DBP7ZX Excision of Rectum, Via Natural or Artificial Opening, Diagnostic (ICD-10-PCS; 2017-06-02)
PROC: 0JH60WZ Insertion of Totally Implantable Vascular Access Device into Chest Subcutaneous Tissue and Fascia, Open Approach (ICD-10-PCS; principal; 2017-06-02 13:30)
PROC: 02HV33Z Insertion of Infusion Device into Superior Vena Cava, Percutaneous Approach (ICD-10-PCS; 2017-06-02 13:30)
PROC: 30243N1 Transfusion of Nonautologous Red Blood Cells into Central Vein, Percutaneous Approach (ICD-10-PCS; 2017-06-03)
DX: C21.8 Malignant neoplasm of overlapping sites of rectum, anus and anal canal (principal); K91.840 Postprocedural hemorrhage of a digestive system organ or structure following a digestive system procedure; I97.89 Other postprocedural complications and disorders of the circulatory system, not elsewhere classified; R55 Syncope and collapse; Y84.8 Other medical procedures as the cause of abnormal reaction of the patient, or of later complication, without mention of misadventure at the time of the procedure; E11.9 Type 2 diabetes mellitus without complications; I10 Essential (primary) hypertension; Z79.899 Other long term (current) drug therapy; Z79.82 Long term (current) use of aspirin
CPT/HCPCS: 36561; 76937; 86900; 86901; 36415 ×2; 36430; 86850; 82962; 85025; 85027 ×2; 80048; 86920; 88305 ×2; 88331 ×2; 77001; 70450; 46999; 45100; G0378 ×3; C1752; C1788; P9016; J2250; J0690; J3010; J3490; A9270 ×3; J2704; J1642 ×3; 902; J1815

== ENCOUNTER → 2017-06-07 | Outpatient (CLI) | payer MEDICARE, OTHER ==
--- NOTE | 2017-06-07 11:55 | RADIOLOGY REPORT (SQ) ---
EXAM DESCRIPTION: MRI PELVIS COMBO COMPLETED DATE/TIME: 06/07/2017 REASON FOR STUDY: MALIGNANT NEOPLASM OF ANUS (C21.0) C21.0 MALIGNANT NEOPLASM OF ANUS, UNSPECIFIED COMPARISON: CT abdomen pelvis 05/05/2017 TECHNIQUE: Sagittal, axial oblique, and coronal oblique T2-weighted images of the pelvis without con trast centered on the rectum. Axial images of the pelvis. FINDINGS: BRIEF DESCRIPTION OF MASS: The 7 cm craniocaudad by 4 cm AP x 3 cm transverse anal mass is present along the left lateral wall of the anus extending up into the left lateral and posterior wal l of the rectum. This mass is intermediate signal on T1 and T2 weighted images with avid gadolinium enhancement. DISTANCE FROM ANORECTAL JUNCTION TO LOWER POLE OF TUMOR: Tumor involves the anorectal junction CIRCUMFERENTIAL LOCATION OF TUMOR: On axial images, tumor extends from the 3 o clock to 7 o clock pos ition. LENGTH OF TUMOR: 7 cm in greatest craniocaudad length, best shown on sagittal T2 image 12 cm. INVOLVEMENT OF MUSCULARIS PROPIA: Yes EXTENSION BEYOND MUSCULARIS PROPIA: Yes, best shown on axial T2 image 11. Tumor extends through musc ularis propria and obliterates the fat plane between the levator muscle and posterior wall of the rec shanae DISTANCE BETWEEN TUMOR AND MESORECTAL FASCIA: Tumor obliterates the fat plane between the dorsal rect um and the levator muscle. Cephalad to this area, the mesorectal fascia is intact PATHOLOGIC LYMPH NODES: No iliac lymph nodes. There are tiny left perirectal lymph nodes as follows: 12 x 9 mm, 6 x 5 mm best demonstrated on axial T1 precontrast image 3. The 12 x 9 mm lymph node is w orrisome for local tumor involvement Several bilateral small inguinal lymph nodes are present with preserved central hilar fat, not pathol ogically enlarged by a imaging criteria. These are best shown on axial fat-sat T1 postcontrast serie s 9 as follows: Right inguinal lymph node, 2 by 1 cm in size image 75. Right inguinal lymph node 1.4 x 0.7 cm in size image 47. Left inguinal lymph node 1.2 x 0.4 cm in size image 46. Left inguinal lymph node 2.1 x 0.6 cm image 75. EXTRAMURAL/VASCULAR INVASION: No gross vascular invasion. A obliterated fat planes between the leva tor intact muscle and posterior wall of the rectum as above. Patient is post hysterectomy. Diffuse sigmoid diverticulosis without MR evidence of acute diverticul itis. Visualized pelvic bony structures are intact. The IMPRESSION: T STAGE: T3c extends 5-15mm beyond muscularis propria N STAGE: N1 1-3 pathologic lymph nodes RECOMMENDATION: As per Dr. Goodwin TECHNICAL DOCUMENTATION: JOB ID: [id number] [employer]- All Rights Reserved
== END ==
LOC: RAD 05-31 18:13
PROVIDERS: ATTEND Radiology Radiation Oncology
DX: C21.0 Malignant neoplasm of anus, unspecified (principal)
CPT/HCPCS: 82565; 72197; A9576

== ENCOUNTER → 2017-06-08 | Outpatient (CLI) | payer MEDICARE, OTHER | LOC: LAB 09:36 | PROVIDERS: ATTEND Radiology Radiation Oncology | DX: Z53.9 Procedure and treatment not carried out, unspecified reason (principal) ==

== ENCOUNTER 2018-02-09 08:13 | Day surgery (SDC) | payer MEDICARE, OTHER ==
[2018-02-07 10:56] LABS: HEMATOCRIT 33.1 % (36.0-47.0); HEMOGLOBIN 10.9 g/dL (12.0-15.5); MEAN CORPUSCULAR HEMOGLOBIN 27.2 pg (27.0-33.4); MEAN CORPUSCULAR HGB CONC 32.8 g/dL (32.0-36.0); MEAN CORPUSCULAR VOLUME 83 fl (80-97); PLATELET COUNT 295 10^3/uL (150-450); RED BLOOD COUNT 3.99 10^6/uL (3.72-5.28); RED CELL DISTRIBUTION WIDTH 16.9 % (11.5-14.0); WHITE BLOOD COUNT 5.9 10^3/uL (4.0-10.5)
[2018-02-07 11:21] LABS: ANION GAP 13 (5-19); BLOOD UREA NITROGEN 17 mg/dL (7-20); CALCIUM 9.6 mg/dL (8.4-10.2); CARBON DIOXIDE 24 mmol/L (22-30); CHLORIDE 103 mmol/L (98-107); GLUCOSE 118 mg/dL (75-110); POTASSIUM 4.7 mmol/L (3.6-5.0)
--- NOTE | 2018-02-07 17:55 | EKG REPORT ---
SEVERITY:- NORMAL ECG - SINUS RHYTHM : Confirmed by: Jayesh Beth 07-Feb-2018 17:54:38
[~2018-02-09 08:13] MED LIST changes: -ACETAMINOPHEN 325 MG TABLET PO PRN; -CEFAZOLIN 1 GM/D5W RTU 1 GM/50 ML RTUPB IV PRN; +LACTATED RINGERS 1000 ML IV PRN; +LIDOCAINE 0.5% INJ-PF (5 MG/ML) 50 ML SDV SUBCUT PRN; +LIDOCAINE 1%/EPINEPHRINE INJ 20 ML VIAL ONE; +LIDOCAINE 2% JELLY 30 ML TUBE ONE; +MIDAZOLAM 2 MG/2 ML INJ ONE; -NORMAL SALINE 1000 ML (RENAL PATIENTS) IV PRN; +PROPOFOL INJ 200 MG/20 ML VIAL IV ONE
[2018-02-09] MEDS ORDERED: LIDOCAINE 2% INJ-PF (20 MG/ML) 10 ML AMPUL ONE (08:16)
[2018-02-09] MEDS ORDERED: FENTANYL CITRATE INJ/PF 100 MCG/2 ML AMPUL ONE (10:58)
[2018-02-09] MEDS ORDERED: ONDANSETRON HCL INJ/PF 4 MG/2 ML SDV IV PRN (11:58)
[2018-02-09] MEDS ORDERED: MORPHINE SULFATE 10 MG/ML INJ IV PRN (11:58)
[2018-02-09] MEDS ORDERED: MEPERIDINE HCL/PF INJ 25 MG/1 ML DISP.SYRIN IV PRN (11:58)
[2018-02-09] MEDS ORDERED: DIPHENHYDRAMINE HCL 50 MG/ML VIAL IV PRN (11:58)
[2018-02-09] MEDS ORDERED: OXYCODONE-ACETAMINOPHEN 5-325 MG TABLET PO PRN ×2 (11:58)
[2018-02-09] MEDS ORDERED: FENTANYL CITRATE INJ/PF 100 MCG/2 ML AMPUL IV PRN ×3 (11:58)
[2018-02-09] MEDS ORDERED: PROMETHAZINE HCL INJ 25 MG/1 ML VIAL IV PRN ×2 (11:58)
--- NOTE | 2018-02-09 12:23 | Discharge Summary ---
Discharge Summary (SDC) - Discharge Final Diagnosis: anal canal mass Date of Surgery: 02/09/18 Discharge Date: 02/09/18 Condition: Stable Treatment or Instructions: [facility] [address] [place] [id number] Hemorrhoid or Anal Surgery Discharge Instructions 1. General Information: a. DO NOT DRIVE a car or operate dangerous machinery for 4-7 days or while taking narcotic prescription pain pills. b. DO NOT consume alcohol, tranquilizers, sleeping medications or any non- prescribed medications for 24 hours unless approved by your doctor or as long as taking narcotic prescription medications. c. DO NOT make important decisions or sign any important papers for the next 24 hours. d. Have a responsible person with you tonight. 2. Activity Restrictions: 2 weeks. a. Avoid heavy lifting or straining until you feel more comfortable. b. It is fine to go for walks, up and down steps, ride in a car. 3. Treatment: a. Tomorrow morning begin warm water sitz baths (soaks) with plain water. You may do 3-4 times per day or after bowel movements to help relieve spasm and pain. Place a dry gauze or panty liner over the sight to catch drainage and blood to help keep your clothing dry. b. You may use Tucks or other medicated wipes to help clean the area as needed. c. If packing used it will pass spontaneously with bowel function. External dressings and medicated gauze should be removed before sitz baths. 4. Medications: a. You may take the prescription tablets for pain one tablet every 6 hours. ( Toradol_). c. Resume all normal medications unless a change is specified by your doctors. d. Stool softeners are encouraged to help you for 2-4 weeks to maintain a soft stool and avoid more painful bowel movements due to pain medication. Colace is often used. e. A numbing cream may be prescribed, this can be applied after sitz baths around the perianal area before the sight is covered with a gauze pad. f. Constipation is very common after anal surgery and you may take over-the- counter medications to help stimulate the bowel such as Milk of Magnesia, Senokot tablets, prune juice and drink plenty of water. 5. Diet: a. Begin with clear liquids and if you do well you may then advance to normal foods low in fat and protein at first. Smaller portion size may be carlos the first night. b. Acidic (orange juice, tomato), foods high in ruffage (grapes, celery, asparagus) and spicy foods should be avoided for comfort the first 2-3 weeks since they can cause more burning sensation with bowel movements. 6..Follow Up Care: a. Please call the office to schedule a follow up appointment with your doctor for 2 weeks. In the event of any postoperative problems or questions or you may call the office during business hours or the On-Call physician evenings and weekends at [facility]. [facility] [phone] I understand the instructions for my postoperative care as described above and a copy has been given to me. Patient/Significant Other Witness Date Prescriptions: Ketorolac Tromethamine [Toradol 10 mg Tablet] 10 mg PO Q6HP PRN #20 tablet PRN Reason: Referrals: SALVADOR HOFFMAN MD [Primary Care Provider] - Discharge Diet: As Tolerated Discharge Activity: No Lifting Over 10 Pounds, No Lifting/Push/Pulling, Walk Frequently Report the Following to Your Physician Immediately: Nausea, Vomiting, Increase in Pain, Fever over 101 Degrees, Unusual Bleeding, Redness, Drainage-Foul Smelling
--- NOTE | 2018-02-09 12:30 | Operative Report ---
Operative Report DATE OF SURGERY: 02/09/18 PREOPERATIVE DIAGNOSIS: 1. Anal canal carcinoma, squamous cell with basaloid features. 2. Status post radiation and chemotherapy. POSTOPERATIVE DIAGNOSIS: Same with no endoscopic evidence of recurrent tumor or associated pathology;. Diverticulosis of the sigmoid colon. OPERATION: 1. Flexible colonoscopy to 80 cm from the anal verge. 2. Anoscopy , with anal canal biopsies of the posterior left lateral and posterior right lateral positions, with closure of biopsy sites SURGEON: LUPE VALDES ANESTHESIA: LMAC TISSUE REMOVED OR ALTERED: Biopsies of anal canal 2 COMPLICATIONS: none ESTIMATED BLOOD LOSS: Scant INTRAOPERATIVE FINDINGS: See below PROCEDURE: The patient was taken to the main operating room where LMAC anesthesia was induced. Patient was left in the supine position, legs placed in the stirrups with gentle abduction. The lower portion of the bed was removed allowing access to the perineum. Surgical plan and surgical timeout were reviewed A rectal exam was performed. The perineum was carefully examined as well. There was no evidence of peroneal, or perianal pathology. Digital examination of the anal canal revealed minimal narrowing, with scar sensation appreciated circumferentially. I was able to digitally dilate up the anal canal to admit to adult fingers. There was some minimal tear of the posterior anal mucosa at the verge. Unfortunately, the patient who was instructed on receiving a bowel prep, has significant fecal load. The flexible adult colonoscope was now advanced up the anorectal canal to approximately 80 cm from the anal verge. Again due to incomplete bowel prep, this was a slightly limited study, but certainly satisfactory to rule out any endoluminal lesions. Scope was withdrawn check the mucosa carefully, as well as suctioning out residual liquid and semisolid stool. Extensive sigmoid diverticulosis is identified. Again no evidence of tumor polyp stricture or bleeding. The colonoscope was brought through the anorectal canal. Careful examination of the transition from the rectum to the anus revealed no evidence of residual tumor. Scope was withdrawn, and digital examination repeated. Along the left posterior anal canal was some thickening but no visible or palpable evidence of residual tumor. I inserted the bullet anoscope into the anal canal, check of the mucosa carefully. There was some scarring and distortion of the dentate line system with previous radiation and chemotherapy. I elected to perform two anal canal biopsies. The bullet anoscope in position, I completed a left posterior lateral vertically oriented excisional biopsy of the mucosa and submucosa approximately 1/2 cm long and 3-4 mm wide. The defect was closed with a running 4 oh locking chromic suture. The identical procedure was performed in the right posterior lateral position. Specimens were poor pinned by Dr. Valdes on a foam board, kept in saline, and oriented proximal to distal. The specimens were personally taken by Dr. Valdes to pathology and reviewed with Dr. Lawson for orientation. We intended to perform at least one additional biopsy but due to patient bucking under LMAC anesthesia, and expelling a significant amount of stool at this point, we elected to terminate the procedure. There was no significant bleeding from the biopsy sites. Patient was taken out of stirrups, and to the recovery room in stable condition.
--- NOTE | 2018-02-09 13:02 | RADIOLOGY REPORT (SQ) ---
EXAM DESCRIPTION: CHEST SINGLE VIEW COMPLETED DATE/TIME: 02/09/2018 12:50 pm REASON FOR STUDY: COPIOUS SECRETIONS COMPARISON: 05/19/2016. EXAM PARAMETERS: NUMBER OF VIEWS: One view. TECHNIQUE: Single frontal radiographic view of the chest acquired. RADIATION DOSE: NA LIMITATIONS: None. FINDINGS: LUNGS AND PLEURA: No opacities, masses or pneumothorax. No pleural effusion. MEDIASTINUM AND HILAR STRUCTURES: No masses. Contour normal. HEART AND VASCULAR STRUCTURES: Heart normal in size. Normal vasculature. BONES: No acute findings. HARDWARE: Vascular access port. Tip at the level of the superior vena cava. OTHER: No other significant finding. IMPRESSION: NO ACUTE RADIOGRAPHIC FINDING IN THE CHEST. TECHNICAL DOCUMENTATION: JOB ID: [id number] [employer]- All Rights Reserved Reading location - IP/workstation name: [email or web address]
[2018-02-09 14:01] VITALS: BP 152/78
[2018-02-09] MEDS ORDERED: PHENYLEPHRINE HCL INJ/PF 10 MG/1 ML SDV ONE (21:20)
== END 2018-02-09 13:55 | disposition home or self-care (01) ==
LOC: OROUT 08:13
PROVIDERS: ATTEND Surgery
DX: C21.1 Malignant neoplasm of anal canal (principal); Z85.048 Personal history of other malignant neoplasm of rectum, rectosigmoid junction, and anus; E11.9 Type 2 diabetes mellitus without complications; I10 Essential (primary) hypertension; Z95.828 Presence of other vascular implants and grafts; Z79.899 Other long term (current) drug therapy; Z79.82 Long term (current) use of aspirin
CPT/HCPCS: 93005; 36415; 82962; 85027; 80048; 88305 ×2; 71045; 93010; 45380; J2250; J2370; J2704; J3490; 902; J3010

== ENCOUNTER 2018-06-03 01:40 | Emergency (ER) | payer MEDICARE, OTHER ==
[2018-06-03] MEDS ORDERED: GABAPENTIN 300 MG CAPSULE PO ONE (02:18)
[2018-06-03] MEDS ORDERED: HYDROCODONE/ACETAMINOPHEN 5-325 MG TABLET PO ONE (03:23)
--- NOTE | 2018-06-03 03:26 | ER Document Report ---
ED General - General Chief Complaint: Leg Pain Stated Complaint: LEG PAIN Time Seen by Provider: 06/03/18 01:58 Notes: Patient is a 78-year-old female who presents with complaint of bilateral leg pain. She says she has been get this leg pain intermittently ever since she finished chemo and radiation back in August of this year. She denies worse and has been in the past. She is always a sharp and burning pain into her anterior thighs. Sometimes is worse in one thigh than the other. Denies little bit worse on the right side. She says it hurts to touch the skin on her thighs. She denies any trauma or injuries. She denies any edema or swelling in her legs. No other complaints at this time. TRAVEL OUTSIDE OF THE [place] IN LAST 30 DAYS: No - Related Data Allergies/Adverse Reactions: No Known Allergies Allergy (Verified 02/07/18 08:45) Past Medical History - Social History Smoking Status: Unknown if Ever Smoked Frequency of alcohol use: None Drug Abuse: None Family History: Reviewed & Not Pertinent Patient has suicidal ideation: No Patient has homicidal ideation: No - Past Medical History Cardiac Medical History: Reports: Hx Hypercholesterolemia, Hx Hypertension Denies: Hx Coronary Artery Disease, Hx Heart Attack Pulmonary Medical History: Denies: Hx Asthma, Hx Bronchitis, Hx COPD, Hx Pneumonia Neurological Medical History: Denies: Hx Cerebrovascular Accident, Hx Seizures Endocrine Medical History: Reports: Hx Diabetes Mellitus Type 2 Renal/ Medical History: Denies: Hx Peritoneal Dialysis GI Medical History: Reports: Hx Gastroesophageal Reflux Disease Musculoskeletal Medical History: Denies Hx Arthritis Past Surgical History: Reports: Hx Breast Surgery - Reduction, Hx Section - x3, Hx Hysterectomy - Immunizations Hx Diphtheria, Pertussis, Tetanus Vaccination: Yes Review of Systems - Review of Systems Notes: My Normal Review Basic REVIEW OF SYSTEMS: CONSTITUTIONAL : Denies fever, chills, or sweats. Denies recent illness. RESPIRATORY: Denies cough, cold, or chest congestion. Denies shortness of breath, difficulty breathing, or wheezing. GASTROINTESTINAL: Denies abdominal pain. Denies nausea, vomiting, or diarrhea. MUSCULOSKELETAL: Bilateral thigh pain SKIN: Denies rash or skin lesions. NEUROLOGICAL: Denies altered mental status or loss of consciousness. Denies headache. Denies weakness or paralysis or loss of use of either side. Denies problems with gait or speech. Denies sensory or motor loss. ALL OTHER SYSTEMS REVIEWED AND NEGATIVE. Physical Exam - Vital signs Vitals: BP 159/56 H 06/03/18 01:48 - Notes Notes: General Appearance: Well nourished, alert, cooperative, no acute distress, to moderate obvious discomfort. Well-appearing. Vitals: reviewed, See vital signs table. Eyes: PERRL, EOMI, Conjuctiva clear Extremities: strength 5/5 in all extremities, good pulses in all extremities, no swelling or edema to the lower extremities. Pain with gentle touch over the skin over the right thighs. She describes this as a sharp burning pain. Remainder of lower extremities are nontender. Good distal pulses. Distal sensation intact. Skin: warm, dry, appropriate color, no rash Neuro: speech clear, oriented x 3, normal affect, responds appropriately to questions. Course - Re-evaluation Re-evalutation: 06/03/18 07:49 I suspect that the patient's pain is most likely neuropathy. I will place her on gabapentin. I did give her a dose here and watch her for approximately 45 minutes and she had no adverse reactions to tolerate medication well. I encouraged her follow-up with her primary care doctor within a week for reevaluation determine whether or not the need to increase the dose of the gabapentin. I encouraged her return to ER if she has any redness or swelling to her legs or if she has any further concerns. I did not suspect DVT as this is intermittent and chronic problem with no associated edema to the legs. Dictation of this chart was performed using voice recognition software; therefore, there may be some unintended grammatical errors. - Vital Signs Vital signs: Temp Pulse Resp BP Pulse Ox 156/56 H 97 06/03/18 03:37 06/03/18 03:37 Discharge - Discharge Clinical Impression: Leg pain, bilateral, Ambulatory dysfunction Condition: Good Disposition: HOME, SELF-CARE Additional Instructions: Please start taking the gabapentin as prescribed. Sometimes this medicine will make you a little bit sleepy, but you are starting at a low dose and therefore this side effect should be minimal. Please follow-up with your doctor this coming week for reevaluation to determine whether or not to increase this medication until it has a good effect on your pain. Please consider using a walker when your pain is more severe so that you have support when you are walking and you do not fall. Please return to the ER if you have any concerns whatsoever. Prescriptions: Gabapentin [Neurontin 300 mg Capsule] 300 mg PO Q12 #30 capsule Walker [Folding Walker] 1 each MC ASDIR PRN #1 each PRN Reason: Referrals: DANE MCKAY, [Primary Care Provider] - Follow up in 3-5 days
[2018-06-03 03:47] VITALS: BP 156/56
== END 2018-06-03 03:48 | disposition home or self-care (01) ==
LOC: ER 01:40
DX: M79.604 Pain in right leg (principal); M79.605 Pain in left leg; R26.89 Other abnormalities of gait and mobility; I10 Essential (primary) hypertension; E11.9 Type 2 diabetes mellitus without complications
CPT/HCPCS: 99283; A9270 ×2

== ENCOUNTER 2018-08-14 06:12 | Emergency (ER) | payer MEDICARE, OTHER ==
[2018-08-14 06:23] VITALS: BP 146/57
--- NOTE | 2018-08-14 06:36 | ER Document Report ---
ED Fall - General Chief Complaint: Fall Stated Complaint: FALL Time Seen by Provider: 08/14/18 06:31 Primary Care Provider: DANE MCKAY DO [Primary Care Provider] - Follow up as needed Notes: This is a pleasant 78-year-old female to the emergency department for evaluation status post fall. Patient fell this morning. Landed on her right side. No syncope. Lost her balance. Is supposed to use a walker but does not. Having some pain in the right hip and right leg and right knee. TRAVEL OUTSIDE OF THE [place] IN LAST 30 DAYS: No - HPI Occurred: This morning Where: Home Context: Tripped Associated symptoms: None Location of injury/pain: Hip, Knee, Thigh - Related data Allergies/Adverse Reactions: No Known Allergies Allergy (Verified 02/07/18 08:45) Past Medical History - General Information source: Patient - Social History Smoking Status: Never Smoker Frequency of alcohol use: None Drug Abuse: None Lives with: Family Family History: Reviewed & Not Pertinent - Past Medical History Cardiac Medical History: Reports: Hx Hypercholesterolemia, Hx Hypertension Denies: Hx Coronary Artery Disease, Hx Heart Attack Pulmonary Medical History: Denies: Hx Asthma, Hx Bronchitis, Hx COPD, Hx Pneumonia Neurological Medical History: Denies: Hx Cerebrovascular Accident, Hx Seizures Endocrine Medical History: Reports: Hx Diabetes Mellitus Type 2 Renal/ Medical History: Denies: Hx Peritoneal Dialysis GI Medical History: Reports: Hx Gastroesophageal Reflux Disease Musculoskeletal Medical History: Denies Hx Arthritis Past Surgical History: Reports: Hx Breast Surgery - Reduction, Hx Section - x3, Hx Hysterectomy - Immunizations Hx Diphtheria, Pertussis, Tetanus Vaccination: Yes Review of Systems - Review of Systems Notes: Constitutional: denies: Chills, Diaphoresis, Fever, Malaise, Weakness EENT: denies: Eye discharge, Blurred vision, Tearing, Double vision, Nose congestion, Nose discharge, Throat swelling, Mouth pain Cardiovascular: denies: Palpitations, Heart racing, Orthopnea, Dyspnea, Chest pain Respiratory: denies: Cough, Hurts to breathe, Wheezing, Shortness of breath Gastrointestinal: denies: Abdominal pain, Diarrhea, Nausea, Vomiting, Black stools, bright red blood in stool Genitourinary: denies: Burning, Dysuria, Discharge, Frequency, Flank pain, Hematuria Musculoskeletal: denies: Joint pain, Joint swelling, Muscle pain, Muscle stiffness, back pain and complaining of right knee, right hip, right femur pain. Hematologic/Lymphatic: denies: Anemia, Easy bleeding, Easy bruising, Blood clots Neurological/Psychological: denies: Confusion, Dementia, Depression, Loss of consciousness Skin: No lesions, no masses, no skin breakdown, no abscesses Physical Exam - Vital signs Vitals: Temp Pulse Resp BP Pulse Ox 97.3 F 74 18 146/57 H 97 08/14/18 06:21 08/14/18 06:21 08/14/18 06:21 08/14/18 06:21 08/14/18 06:21 Interpretation: Normal - General General appearance: Appears well, Alert - HEENT Head: Normocephalic, Atraumatic Eyes: Normal Pupils: PERRL - Respiratory Respiratory status: No respiratory distress Chest status: Nontender Breath sounds: Normal Chest palpation: Normal - Cardiovascular Rhythm: Regular Heart sounds: Normal auscultation Murmur: No - Abdominal Inspection: Normal Distension: No distension Bowel sounds: Normal Tenderness: Nontender Organomegaly: No organomegaly - Back Back: Normal, Nontender - Extremities General upper extremity: Normal inspection, Nontender, Normal color, Normal ROM, Normal temperature General lower extremity: Normal inspection, Nontender, Normal color, Normal ROM, Normal temperature, Normal weight bearing. No: Liliana's sign - Neurological Neuro grossly intact: Yes Cognition: Normal Orientation: AAOx4 Onofre Coma Scale Eye Opening: Spontaneous [place] Coma Scale Verbal: Oriented Onofre Coma Scale Motor: Obeys Commands [place] Coma Scale Total: 15 Speech: Normal Motor strength normal: LUE, RUE, LLE, RLE Sensory: Normal - Psychological Associated symptoms: Normal affect, Normal mood - Skin Skin Temperature: Warm Skin Moisture: Dry Skin Color: Normal Course - Re-evaluation Re-evalutation: 08/14/18 07:52 Femur X-Ray 08/14/18 06:41 IMPRESSION: No acute fracture or dislocation copyright 2010 [employer]- All Rights Reserved Pelvis X-Ray 08/14/18 06:41 IMPRESSION: No acute fracture or dislocation copyright 2010 [employer]- All Rights Reserved Well-appearing in no acute distress and no obvious signs of fracture. Patient can go home at this time. - Vital Signs Vital signs: Temp Pulse Resp BP Pulse Ox 97.3 F 74 18 146/57 H 97 08/14/18 06:21 08/14/18 06:21 08/14/18 06:21 08/14/18 06:21 08/14/18 06:21 Discharge - Discharge Clinical Impression: Contusion of right hip and thigh Qualifiers: Encounter type: initial encounter Qualified Code(s): S70.01XA - Contusion of right hip, initial encounter; S70.11XA - Contusion of right thigh, initial encounter Condition: Good Disposition: HOME, SELF-CARE Instructions: Contusion ([facility]) Referrals: DANE MCKAY, [Primary Care Provider] - Follow up as needed
--- NOTE | 2018-08-14 07:42 | RADIOLOGY REPORT (SQ) ---
EXAM DESCRIPTION: XR FEMUR 2 VIEWS COMPLETED DATE/TME: 08/14/2018 06:41 CLINICAL HISTORY: 78 years, Female, fall, pain COMPARISON: None. NUMBER OF VIEWS: Two TECHNIQUE: Two views of the right femur LIMITATIONS: None. FINDINGS: There is no acute fracture or dislocation. The hip and knee joints appear intact. No large soft tissue swelling. No radiopaque foreign body IMPRESSION: No acute fracture or dislocation copyright 2010 [employer]- All Rights Reserved
--- NOTE | 2018-08-14 07:43 | RADIOLOGY REPORT (SQ) ---
EXAM DESCRIPTION: XR PELVIS 1-2 VIEWS COMPLETED DATE/TME: 08/14/2018 06:41 CLINICAL HISTORY: 78 years, Female, fall, pain COMPARISON: None. NUMBER OF VIEWS: One TECHNIQUE: AP view the pelvis LIMITATIONS: None. FINDINGS: No acute fracture or dislocation. The pubic symphysis and bilateral hip and sacroiliac joints appear intact. Phleboliths are noted within the pelvis. No large soft tissue swelling. IMPRESSION: No acute fracture or dislocation copyright 2010 [employer]- All Rights Reserved
== END 2018-08-14 08:45 | disposition home or self-care (01) ==
LOC: ER 06:12
DX: S70.01XA Contusion of right hip, initial encounter (principal); S70.11XA Contusion of right thigh, initial encounter; W19.XXXA Unspecified fall, initial encounter; E78.00 Pure hypercholesterolemia, unspecified; I10 Essential (primary) hypertension; E11.9 Type 2 diabetes mellitus without complications; Z90.710 Acquired absence of both cervix and uterus
CPT/HCPCS: 72170; 99283

== ENCOUNTER 2018-08-14 20:22 | Emergency (ER) | payer MEDICARE, OTHER ==
[2018-08-14] MEDS ORDERED: LIDOCAINE 5% (700 MG) TRANSDERMAL ADH..PATCH TP ONE (20:47)
[2018-08-14] MEDS ORDERED: ACETAMINOPHEN 325 MG TABLET PO ONE (20:47)
[2018-08-14] MEDS ORDERED: OXYCODONE HCL IR 5 MG TABLET PO ONE (20:47)
[2018-08-14] MEDS ORDERED: GABAPENTIN 100 MG CAPSULE PO ONE (20:48)
[2018-08-14] MEDS ORDERED: KETOROLAC TROMETHAMINE 60 MG/2 ML SDV IM ONE (20:48)
--- NOTE | 2018-08-14 21:01 | ER Document Report ---
ED General - General Chief Complaint: Leg Pain Stated Complaint: LEG PAIN Time Seen by Provider: 08/14/18 20:33 Primary Care Provider: DANE MCKAY DO [Primary Care Provider] - Follow up as needed Notes: Patient is a 78-year-old female with a past history of hypertension, peripheral neuropathy, presents complaining of bilateral lower extreme knee pain worse to the right thigh. Has chronic peripheral neuropathy to these areas at baseline, states it has been worse since a fall for which she was seen earlier today. Describes the pain as a severe, stabbing, shooting pain. Nothing is new or different since being discharged. Family is concerned that the patient is having difficulty getting up and walking secondary to pain. The patient was not given anything or advised to take anything for pain at time of discharge previously. Takes gabapentin 200 mg 4 times daily, has been taking as directed but states this is not currently helping her pain. Denies any focal weakness or numbness. Did not hit her head or neck earlier today. TRAVEL OUTSIDE OF THE [place] IN LAST 30 DAYS: No - Related Data Allergies/Adverse Reactions: No Known Allergies Allergy (Verified 08/14/18 20:33) Past Medical History - General Information source: Patient - Social History Smoking Status: Never Smoker Frequency of alcohol use: None Drug Abuse: None Lives with: Family Family History: Reviewed & Not Pertinent Patient has suicidal ideation: No Patient has homicidal ideation: No - Past Medical History Cardiac Medical History: Reports: Hx Hypercholesterolemia, Hx Hypertension Denies: Hx Coronary Artery Disease, Hx Heart Attack Pulmonary Medical History: Denies: Hx Asthma, Hx Bronchitis, Hx COPD, Hx Pneumonia Neurological Medical History: Denies: Hx Cerebrovascular Accident, Hx Seizures Endocrine Medical History: Reports: Hx Diabetes Mellitus Type 2 Renal/ Medical History: Denies: Hx Peritoneal Dialysis GI Medical History: Reports: Hx Gastroesophageal Reflux Disease Musculoskeletal Medical History: Denies Hx Arthritis Past Surgical History: Reports: Hx Breast Surgery - Reduction, Hx Section - x3, Hx Hysterectomy - Immunizations Hx Diphtheria, Pertussis, Tetanus Vaccination: Yes Review of Systems - Review of Systems Notes: Constitutional: Negative for fever. HENT: Negative for sore throat. Eyes: Negative for visual changes. Cardiovascular: Negative for chest pain. Respiratory: Negative for shortness of breath. Gastrointestinal: Negative for abdominal pain, vomiting or diarrhea. Genitourinary: Negative for dysuria. Musculoskeletal: Positive for bilateral lower extremity pain worsened towards the right thigh Skin: Negative for rash. Neurological: Negative for headaches, weakness or numbness. 10 point ROS negative except as marked above and in HPI. Physical Exam - Vital signs Vitals: Temp Pulse Resp BP Pulse Ox 98.8 F 79 17 151/61 H 97 08/14/18 20:23 08/14/18 20:23 08/14/18 20:23 08/14/18 20:23 08/14/18 20:23 Interpretation: Hypertensive Notes: PHYSICAL EXAMINATION: GENERAL: Well-appearing, well-nourished and in no acute distress. HEAD: Atraumatic, normocephalic. EYES: Pupils equal round and reactive to light, extraocular movements intact, sclera anicteric, conjunctiva are normal. ENT: nares patent, oropharynx clear without exudates. Moist mucous membranes. NECK: Normal range of motion, supple without lymphadenopathy LUNGS: Breath sounds clear to auscultation bilaterally and equal. No wheezes rales or rhonchi. HEART: Regular rate and rhythm without murmurs ABDOMEN: Soft, nontender, normoactive bowel sounds. No guarding, no rebound. No masses appreciated. EXTREMITIES: Normal range of motion, no pitting or edema. No cyanosis. NEUROLOGICAL: No focal neurological deficits. Moves all extremities spontaneously and on command. PSYCH: Normal mood, normal affect. SKIN: Warm, Dry, normal turgor, no rashes or lesions noted. Course - Re-evaluation Re-evalutation: 08/14/18 22:02 Patient presents with uncontrolled pain making it difficult to ambulate after having a fall for which she was seen earlier this morning. The patient does not have any evidence of trauma on exam. No new falls or injuries since being seen this morning. She had x-rays of her right femur and hip earlier today which have been reviewed and are again noted to be normal. Patient's main complaint is that secondary to pain she has been unable to get up and walk. I treated the patient here with Toradol, acetaminophen, her home gabapentin, and 2.5 mg of oxycodone. A topical lidocaine patch was also applied over the mid thigh on the right where she was having the most of her pain. After approximate 45 minutes the patient was ambulate it with a walker which she normally uses at home. She was able to walk without any apparent difficulty or requiring any assistance. At this time will discharge with return precautions and follow-up recommendations. Verbal discharge instructions given a the bedside and oppo rtunity for questions given. Medication warnings reviewed. Patient is in agreement with this plan and has verbalized understanding of return precautions and the need for primary care follow-up in the next 24-72 hours. - Vital Signs Vital signs: Temp Pulse Resp BP Pulse Ox 98.8 F 79 17 151/61 H 97 08/14/18 20:23 08/14/18 20:23 08/14/18 20:23 08/14/18 20:23 08/14/18 20:23 Discharge - Discharge Clinical Impression: Difficulty walking Contusion of right hip and thigh Qualifiers: Encounter type: initial encounter Qualified Code(s): S70.01XA - Contusion of right hip, initial encounter; S70.11XA - Contusion of right thigh, initial encounter Fall Qualifiers: Encounter type: initial encounter Qualified Code(s): W19.XXXA - Unspecified fall, initial encounter Condition: Good Disposition: HOME, SELF-CARE Additional Instructions: For your pain: Take ibuprofen 400 mg and acetaminophen 1000 mg every 6 hours together as needed for pain. If this does not control your pain you may take 2.5mg of oxycodone every 4 hours as needed. Apply topical lidocaine patches per box instructions to the right thigh where your having pain. These can be purchased directly over the counter. Continue to use your gabapentin as prescribed. Prescriptions: Oxycodone HCl [Oxycontin Ir 5 Mg Tablet] 0.5 tab PO Q4H PRN #10 tablet PRN Reason: For Pain Referrals: DANE MCKAY, [Primary Care Provider] - Follow up in 3-5 days
[2018-08-14 22:56] VITALS: BP 124/49
== END 2018-08-14 22:59 | disposition home or self-care (01) ==
LOC: ER 20:22
DX: S70.01XA Contusion of right hip, initial encounter (principal); R26.2 Difficulty in walking, not elsewhere classified; W19.XXXA Unspecified fall, initial encounter; E78.00 Pure hypercholesterolemia, unspecified; I10 Essential (primary) hypertension; E11.9 Type 2 diabetes mellitus without complications; G62.9 Polyneuropathy, unspecified; Z90.710 Acquired absence of both cervix and uterus
CPT/HCPCS: 99283; 96372; A9270 ×3; J1885

== ENCOUNTER → 2018-09-23 | Outpatient (CLI) | payer MEDICARE, OTHER ==
--- NOTE | 2018-09-26 11:19 | RADIOLOGY REPORT (SQ) ---
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 TECHNIQUE: Sagittal and Axial imaging includes T1, T1 post gadolinium, T2, STIR and gradient echo se quences. Coronal T2/HASTE imaging. CONTRAST TYPE AND DOSE: 15 mL Dotarem. RENAL FUNCTION: Not indicated. ACR Type II contrast agent associated with few, if any, unconfounded cases of NSFCreatinine 1.3 GFR 46. LIMITATIONS: None. FINDINGS: VISUALIZED UPPER ABDOMEN: Limited evaluation. No acute or suspicious findings suggested. SEGMENTATION: No transitional anatomy. The lowest well-developed disc space is labeled L5-S1. ALIGNMENT: There is grade 1 anterolisthesis of L4 on L5. VERTEBRAE: Intact. No fractures. BONE MARROW: Normal. No marrow replacement or reactive changes. DISC SIGNAL: Normal. No significant abnormal signal or loss of height. POSTERIOR ELEMENTS: Generally intact. No pars defect evident. HARDWARE: None in the spine. CORD AND CONUS: Normal in size and signal intensity. Conus at the T12-L1 level. SOFT TISSUES: No aortic aneurysm seen. No bulky retroperitoneal adenopathy or mass. No paraspinal mas s or fluid. L1-L2: No significant spinal stenosis or exit foraminal stenosis. L2-L3: No significant spinal stenosis or exit foraminal stenosis. L3-L4: No significant spinal stenosis or exit foraminal stenosis. L4-L5: There is unroofing of the disc secondary to the anterolisthesis. There is a mild broad-based disc bulge that involves the left neural foramen. There are hypertrophic facet changes. Mild centra l canal stenosis. L5-S1: No significant spinal stenosis or exit foraminal stenosis. LOWER THORACIC: Incompletely imaged. No stenosis seen. SACRUM: Visualized upper sacrum intact. ENHANCEMENT: No abnormal enhancement. OTHER: No other significant findings. IMPRESSION: There is anterolisthesis of L4 on L5. Facet arthropathy at L4-5. There is mild central canal stenosis and there is significant left foraminal stenosis secondary to an asymmetrically bulgi ng disc. TECHNICAL DOCUMENTATION: JOB ID: [id number] [employer]- All Rights Reserved Reading location - IP/workstation name: [email or web address]
== END ==
LOC: RAD 15:11
PROVIDERS: ATTEND Internal Medicine Hematology & Oncology
DX: C21.0 Malignant neoplasm of anus, unspecified (principal)
CPT/HCPCS: 82565; 72158; A9576

== ENCOUNTER 2018-11-22 20:43 | Emergency (ER) | payer MEDICARE, OTHER ==
--- NOTE | 2018-11-22 22:43 | RADIOLOGY REPORT (SQ) ---
2 VIEWS OF RIGHT FEMUR HISTORY: Leg pain. Fall. COMPARISON: None. FINDINGS: Generalized osteopenia is present. No acute fracture or dislocation is seen. The joint spaces are grossly intact. No knee joint effusion. Surrounding soft tissues are unremarkable. IMPRESSION: No acute fracture or malalignment.
[2018-11-23] MEDS ORDERED: KETOROLAC TROMETHAMINE 60 MG/2 ML SDV IM ONE (00:36)
--- NOTE | 2018-11-23 00:56 | ER Document Report ---
HPI - HPI Time Seen by Provider: 11/22/18 22:03 Pain Level: 4 Notes: Patient is a 78-year-old female presented to the emergency department with chief complaint of right knee pain after falling at home. Patient and family reports that she was using her walker when she tripped over a step falling forward landing onto her right knee. She denies any other symptoms, denies any other pain. She denies any dizziness prior to falling, states that she is sure that she tripped over a step as there is a change in elevation from one floor to the other. - REPRODUCTIVE Reproductive: DENIES: : Past Medical History - General Information source: Patient - Social History Smoking Status: Never Smoker Chew tobacco use (# tins/day): No Frequency of alcohol use: None Drug Abuse: None Family History: Reviewed & Not Pertinent Patient has suicidal ideation: No Patient has homicidal ideation: No - Past Medical History Cardiac Medical History: Reports: Hx Hypercholesterolemia, Hx Hypertension Denies: Hx Coronary Artery Disease, Hx Heart Attack Pulmonary Medical History: Denies: Hx Asthma, Hx Bronchitis, Hx COPD, Hx Pneumonia Neurological Medical History: Denies: Hx Cerebrovascular Accident, Hx Seizures Endocrine Medical History: Reports: Hx Diabetes Mellitus Type 2 Renal/ Medical History: Denies: Hx Peritoneal Dialysis GI Medical History: Reports: Hx Gastroesophageal Reflux Disease Musculoskeletal Medical History: Denies Hx Arthritis Past Surgical History: Reports: Hx Breast Surgery - Reduction, Hx Section - x3, Hx Hysterectomy - Immunizations Hx Diphtheria, Pertussis, Tetanus Vaccination: Yes Vertical Provider Document - CONSTITUTIONAL Notes: PHYSICAL EXAMINATION: GENERAL: Well-appearing, well-nourished and in no acute distress. HEAD: Atraumatic, normocephalic. EYES: Pupils equal round extraocular movements intact, conjunctiva are normal. ENT: Nares patent NECK: Normal range of motion LUNGS: No respiratory distress Musculoskeletal: Normal range of motion to all extremities, strong popliteal and dorsalis pedis pulse to right lower extremity. Normal motor and sensation distal to area of pain. NEUROLOGICAL: Normal speech, normal gait. PSYCH: Normal mood, normal affect. SKIN: Warm, Dry, normal turgor, small abrasion noted over patient's right pratt. - INFECTION CONTROL TRAVEL OUTSIDE OF THE [place] IN LAST 30 DAYS: No Course - Re-evaluation Re-evalutation: 11/23/18 00:55 X-ray is negative for any fracture dislocation of the right leg. Patient's pelvis appears to be stable by palpation. Patient not complaining of any pelvic or hip pain. Patient will be given 30 mg of Toradol IM in nursing staff will attempt to ambulate patient prior to discharge. - Vital Signs Vital signs: Temp Pulse Resp BP Pulse Ox 98.1 F 72 20 147/50 H 98 11/22/18 21:10 11/22/18 21:10 11/22/18 21:10 11/22/18 21:10 11/22/18 21:10 Discharge - Discharge Clinical Impression: Right knee injury Qualifiers: Encounter type: initial encounter Qualified Code(s): S89.91XA - Unspecified injury of right lower leg, initial encounter Condition: Stable Disposition: HOME, SELF-CARE Additional Instructions: Contusion Your injury has resulted in a contusion -- a crushing of the deep tissues. No injury to important structures was detected during the physician's exam. Contusions vary in the amount of pain they cause, and in the length of time required for healing. Typically, the area will become bruised, and will remain painful to touch for two or three weeks. However, most patients are back to working and playing within a few days. After the initial period of rest and cold-packs, your symptoms (together with the doctor's recommendations) will determine how rapidly you can get back to full activity. Usually this means "do what feels okay, but don't do things that hurt." If re-examination was recommended, it's important to follow up as in structed. Call the doctor or return any time if pain increases, if swelling becomes severe, if you develop numbness or weakness in an injured extremity, or if any other alarming symptoms occur. Ice & Elevation Apply ice packs frequently against the painful area. Many different schedules are recommended, such as "20 minutes on, 20 minutes off" or "one hour ice, two hours rest." If you need to work, you may need to go longer between ice treatments. You should plan to have the area ice packed AT LEAST one-fourth of the time. The ice should be applied over the wrap, tape, or splint, or over a layer of cloth -- not directly against the skin. Some ice bags have a built-in cloth and can be put directly on the skin. Your injured part should be elevated as much as possible over the next 48 hours. Try to keep the injury above the level of the heart. Avoid use of the injured area. Elevation and rest will decrease the swelling. Ibuprofen Ibuprofen is an excellent, safe drug for pain control. In addition, it has potent antiinflammatory effects which are beneficial, especially in the treatment of injuries, arthritis, or tendonitis. It's best to take ibuprofen with food. Persons with ulcer disease or allergy to aspirin should notify their physician of this before taking ibuprofen. Take the medication exactly as prescribed. Don't take additional doses unl ess instructed to do so by your doctor. If you develop wheezing, shortness of breath, hives, faintness, stomach pain, vomiting, or dark black stools, return for re-evaluation at once. The x-rays were negative for any fracture or dislocation. Please take ibuprofen [id number] as directed to help with pain and inflammation. Referrals: SALVADOR HOFFMAN MD [Primary Care Provider] - Follow up as needed
[2018-11-23 02:17] VITALS: BP 139/86
== END 2018-11-23 02:17 | disposition home or self-care (01) ==
LOC: ER 20:43
DX: S89.91XA Unspecified injury of right lower leg, initial encounter (principal); M25.561 Pain in right knee; W01.0XXA Fall on same level from slipping, tripping and stumbling without subsequent striking against object, initial encounter; E78.00 Pure hypercholesterolemia, unspecified; I10 Essential (primary) hypertension; E11.9 Type 2 diabetes mellitus without complications; Z90.710 Acquired absence of both cervix and uterus
CPT/HCPCS: 99283; 96372; 73552; J1885

== ENCOUNTER → 2019-07-06 | Outpatient (CLI) | payer MEDICARE, OTHER ==
--- NOTE | 2019-07-06 11:10 | WOMENS IMAGING REPORT ---
EXAM DESCRIPTION: BONE DENSITY HIP/SPINE COMPLETED DATE/TIME: 07/06/2019 10:52 am REASON FOR STUDY: N95.9 BONE DENSITY N95.9 UNSPECIFIED MENOPAUSAL AND PERIMENOPAUSAL DISORDER Z12.3 1 ENCNTR SCREEN MAMMOGRAM FOR MALIGNANT NEOPLASM OF ESTHER COMPARISON: None. TECHNIQUE: Dual-Energy X-ray Absorptiometry (DEXA) of the AP Spine and Hip. LIMITATIONS: None. FINDINGS: LUMBAR SPINE: The bone mineral density (BMD) measured from L1-L4 in the AP projection correlates with a T-score of -1.6, which is osteopenia as defined by the World Health Organization. HIP: The bone mineral density (BMD) measured in the left hip correlates with a T-score of -3.2, which is o steoporosis as defined by the World Health Organization. IMPRESSION: 1. LUMBAR SPINE: OSTEOPENIA. 2. HIP: OSTEOPOROSIS. COMMENT: The World Health Organization defines low BMD as follows: T-score: Normal: Greater than -1.0 Osteopenia: Between -1.0 and -2.5 Osteoporosis: Less than -2.5 without fractures Established osteoporosis: Less than -2.5 with fractures In general, you may wish to consider: Diagnosis Treatment Follow-up DEXA Normal BMD Prevention 2-3 years Osteopenia Prevention/Therapy 1-2 years Osteoporosis Therapy Yearly TECHNICAL DOCUMENTATION: JOB ID: [id number]- All Rights Reserved Reading location - IP/workstation name: [email or web address]
--- NOTE | 2019-07-06 12:04 | WOMENS IMAGING REPORT ---
EXAM DESCRIPTION: 3D SCREENING MAMMO BILAT COMPLETED DATE/TIME: 07/06/2019 10:52 am REASON FOR STUDY: Z12.31 SCREENING MAMMO N95.9 UNSPECIFIED MENOPAUSAL AND PERIMENOPAUSAL DISORDER Z 12.31 ENCNTR SCREEN MAMMOGRAM FOR MALIGNANT NEOPLASM OF ESTHER COMPARISON: Multiple since 2008 EXAM PARAMETERS: Standard craniocaudal and mediolateral oblique views of each breast recorded using digital acquisition and breast tomosynthesis. Read with the assistance of CAD. .[facility] - [employer] Curriculum Writer Version 9.2 LIMITATIONS: None. FINDINGS: Findings present which are benign by mammographic criteria. No suspicious masses, calcific ations or architectural distortion. Pertinent benign findings: Single clip in the left breast laterally, post benign breast biopsy. Post surgical changes from bilateral breast lift Benign mammographic findings may include one or more of the following: Smooth masses, popcorn/rim/coa rse calcifications, asymmetries, post-procedure changes, and lesions with long-standing stability. IMPRESSION: BENIGN MAMMOGRAPHIC FINDINGS. BIRADS 2 BREAST DENSITY: a. The breasts are almost entirely fatty. BIRAD: ASSESSMENT: 2 BENIGN FINDING(S) RECOMMENDATION: ROUTINE SCREENING Please continue yearly bilateral screening mammography/tomosynthesis in June 2020 COMMENT: The patient has been notified of the results by letter per [place] requirements. Additional no tification policies are in place for contacting patient with suspicious or incomplete findings. Quality ID #[id number]: The [employer] recommends an annual screening mammogram for women aged 40 years or over. This facility utilizes a reminder system to ensure that all patients receive reminder letters, and/or direct phone calls for appointments. This includes reminders for routine scr eening mammograms, diagnostic mammograms, or other Breast Imaging Interventions when appropriate. Th is patient will be placed in the appropriate reminder system. TECHNICAL DOCUMENTATION: FINDING NUMBER: (1) ASSESSMENT: (1) JOB ID: [id number] [employer]- All Rights Reserved Reading location - IP/workstation name: [email or web address]
== END ==
LOC: WI 09:40
PROVIDERS: ATTEND Internal Medicine Hematology & Oncology
DX: Z12.31 Encounter for screening mammogram for malignant neoplasm of breast (principal); M81.0 Age-related osteoporosis without current pathological fracture; N95.9 Unspecified menopausal and perimenopausal disorder
CPT/HCPCS: 77063; 77067; 77080

== ENCOUNTER 2019-09-06 20:47 | Emergency (ER) | payer MEDICARE, OTHER ==
--- NOTE | 2019-09-06 22:18 | RADIOLOGY REPORT (SQ) ---
EXAM DESCRIPTION: XR FEMUR 2 VIEWS COMPLETED DATE/TME: 09/06/2019 00:00 CLINICAL HISTORY: 79 years, Female, pain with weight bearing and movement COMPARISON: Prior study from 11/22/2018 NUMBER OF VIEWS: Four TECHNIQUE: Frontal and lateral radiograph of the right femur were acquired. LIMITATIONS: None. FINDINGS: Scattered phleboliths project over the pelvic inlet. Otherwise, no acute fracture or dislocation is evident. There is generalized osteopenia. No significant knee joint effusion. IMPRESSION: No acute osseous anomaly. copyright 2010 [employer]- All Rights Reserved
--- NOTE | 2019-09-06 22:21 | RADIOLOGY REPORT (SQ) ---
EXAM DESCRIPTION: XR PELVIS 1-2 VIEWS COMPLETED DATE/TME: 09/06/2019 00:00 CLINICAL HISTORY: 79 years, Female, pain with weight bearing and movement COMPARISON: Prior study from 11/22/2018 NUMBER OF VIEWS: One TECHNIQUE: Single frontal view of the pelvis was obtained. LIMITATIONS: None. FINDINGS: Scattered phleboliths project over the pelvic inlet. Otherwise, no acute fracture or dislocation is noted. Joint spaces appear overall well-maintained. IMPRESSION: No acute osseous anomaly. copyright 2010 [employer]- All Rights Reserved
[2019-09-07] MEDS ORDERED: FENTANYL CITRATE INJ/PF 100 MCG/2 ML AMPUL IV PRN (00:46)
[2019-09-07] MEDS ORDERED: ONDANSETRON HCL INJ/PF 4 MG/2 ML SDV IV ONE (00:46)
[2019-09-07 01:21] LABS: ABSOLUTE BASOPHILS # (AUTO) 0.1 10^3/uL (0.0-0.2); ABSOLUTE EOSINOPHILS # (AUTO) 0.2 10^3/uL (0.0-0.6); ABSOLUTE LYMPHOCYTES (AUTO) 1.2 10^3/uL (0.5-4.7); ABSOLUTE MONOCYTES (AUTO) 0.5 10^3/uL (0.1-1.4); ABSOLUTE NEUT (AUTO) 4.6 10^3/uL (1.7-8.2); BASOPHILS % (AUTO) 0.8 % (0-2); EOSINOPHILS % (AUTO) 3.1 % (0-6); HEMATOCRIT 30.4 % (36.0-47.0); HEMOGLOBIN 10.4 g/dL (12.0-15.5); LYMPHOCYTES % (AUTO) 18.5 % (13-45); MEAN CORPUSCULAR HEMOGLOBIN 29.3 pg (27.0-33.4); MEAN CORPUSCULAR HGB CONC 34.4 g/dL (32.0-36.0); MEAN CORPUSCULAR VOLUME 85 fl (80-97); PLATELET COUNT 261 10^3/uL (150-450); RED BLOOD COUNT 3.57 10^6/uL (3.72-5.28); RED CELL DISTRIBUTION WIDTH 16.3 % (11.5-14.0); SEGMENTED NEUTROPHILS % (AUTO) 70.6 % (42-78); TOTAL CELLS COUNTED % (AUTO) 100 %; WHITE BLOOD COUNT 6.5 10^3/uL (4.0-10.5)
[2019-09-07 01:38] LABS: ALBUMIN 3.9 g/dL (3.5-5.0); ALKALINE PHOSPHATASE 84 U/L (38-126); ANION GAP 6 (5-19); ASPARTATE AMINO TRANSFERASE 24 U/L (14-36); BILIRUBIN,TOTAL 0.2 mg/dL (0.2-1.3); BLOOD UREA NITROGEN 30 mg/dL (7-20); CALCIUM 9.4 mg/dL (8.4-10.2); CARBON DIOXIDE 26 mmol/L (22-30); CHLORIDE 107 mmol/L (98-107); GLUCOSE 151 mg/dL (75-110); POTASSIUM 4.8 mmol/L (3.6-5.0); TOTAL PROTEIN 7.2 g/dL (6.3-8.2)
--- NOTE | 2019-09-07 02:57 | RADIOLOGY REPORT (SQ) ---
EXAM DESCRIPTION: CT LUMBAR SPINE WITHOUT IV CONTRAST COMPLETED DATE/TME: 09/07/2019 00:47 CLINICAL HISTORY: 79 years, Female, sciatica COMPARISON: MRI dated 09/23/2018 TECHNIQUE: Axial CT images of the lumbar spine were obtained without contrast. Sagittal and coronal reformats were performed. DLP 1508 Images stored on PACS. All CT scanners at this facility use dose modulation, iterative reconstruction, and/or weight based dosing when appropriate to reduce radiation dose to as low as reasonably achievable (ALARA). [facility]: Dose Right [facility]: CareDose [facility]: Dose Right [facility]: Teradose 4D [facility]: [employer]ro[employer] LIMITATIONS: None. FINDINGS: There is mild grade 1 anterolisthesis of L4 over L5. There is no acute fracture or subluxation. The vertebral heights are maintained. The paravertebral soft tissues are normal. The grade 1 anterolisthesis at L4-L5 with the uncovered disc with facet arthropathy causes severe bilateral neural foraminal narrowing. No other areas of severe neural foraminal narrowing. There are atherosclerotic calcifications of the abdominal aorta without evidence of an aneurysm. Multiple phleboliths are noted within the pelvis. IMPRESSION: No acute fracture or subluxation. Severe bilateral neural foraminal narrowing at L4-L5 TECHNICAL DOCUMENTATION: Quality ID # 436: Final reports with documentation of one or more dose reduction techniques (e.g., Automated exposure control, adjustment of the mA and/or kV according to patient size, use of iterative reconstruction technique) copyright 2010 [employer]- All Rights Reserved
--- NOTE | 2019-09-07 02:58 | RADIOLOGY REPORT (SQ) ---
EXAM DESCRIPTION: CT PELVIS WITHOUT IV CONTRAST COMPLETED DATE/TME: 09/07/2019 00:46 CLINICAL HISTORY: 79 years, Female, hip pain COMPARISON: None. TECHNIQUE: Images stored on PACS. All CT scanners at this facility use dose modulation, iterative reconstruction, and/or weight based dosing when appropriate to reduce radiation dose to as low as reasonably achievable (ALARA). [facility]: Dose Right [facility]: CareDose [facility]: Dose Right [facility]: Teradose 4D [facility]: [employer] LIMITATIONS: None. FINDINGS: Lumbar spine dictated separately. Osteoporosis. Osteoarthritis. No acute fractures identified. Surrounding soft tissues of the pelvis demonstrate diverticulosis of the colon. Postsurgical change. No acute process. IMPRESSION: No acute bony injury is seen to the pelvis TECHNICAL DOCUMENTATION: Quality ID # 436: Final reports with documentation of one or more dose reduction techniques (e.g., Automated exposure control, adjustment of the mA and/or kV according to patient size, use of iterative reconstruction technique) copyright 2010 [employer]- All Rights Reserved
[2019-09-07] MEDS ORDERED: DEXAMETHASONE SOD PHOS INJ 10 MG/1 ML VIAL IV ONE (04:12)
--- NOTE | 2019-09-07 04:18 | ER Document Report ---
ED General - General Chief Complaint: Leg Pain Stated Complaint: GROIN PAIN Time Seen by Provider: 09/07/19 00:06 Primary Care Provider: SALVADOR HOFFMAN MD [Primary Care Provider] - Follow up as needed TRAVEL OUTSIDE OF THE [place] IN LAST 30 DAYS: No - HPI Notes: 79-year-old female complains of atraumatic right hip and thigh pain aggravated by any movement, weightbearing or Valsalva. This is developed insidiously over the past 2 days but is very severe today to the point she is not able to ambulate. Patient denies any back pain at this time. She denies any known history of sciatica. She specifically denies any fall. - Related Data Allergies/Adverse Reactions: No Known Allergies Allergy (Verified 08/14/18 20:33) Home Medications: ASA, Triantin, Verapamil, Vit D3, Lopermide Past Medical History - General Information source: Patient, Relative - Social History Smoking Status: Never Smoker Family History: Reviewed & Not Pertinent Patient has suicidal ideation: No Patient has homicidal ideation: No - Past Medical History Cardiac Medical History: Reports: Hx Hypercholesterolemia, Hx Hypertension Denies: Hx Coronary Artery Disease, Hx Heart Attack Pulmonary Medical History: Denies: Hx Asthma, Hx Bronchitis, Hx COPD, Hx Pneumonia Neurological Medical History: Denies: Hx Cerebrovascular Accident, Hx Seizures Endocrine Medical History: Reports: Hx Diabetes Mellitus Type 2 Renal/ Medical History: Denies: Hx Peritoneal Dialysis Malignancy Medical History: Reports: Hx Colorectal Cancer GI Medical History: Reports: Hx Gastroesophageal Reflux Disease, Other - Colorectal cancer Musculoskeletal Medical History: Denies Hx Arthritis Past Surgical History: Reports: Hx Breast Surgery - Reduction, Hx Section - x3, Hx Hysterectomy, Other - Colorectal cancer - Immunizations Hx Diphtheria, Pertussis, Tetanus Vaccination: Yes Review of Systems - Review of Systems Notes: Constitutional: Negative for fever. HENT: Negative for sore throat. Eyes: Negative for visual changes. Cardiovascular: Negative for chest pain. Respiratory: Negative for shortness of breath. Gastrointestinal: Negative for abdominal pain, vomiting or diarrhea. Genitourinary: Negative for dysuria. Musculoskeletal: As per HPI. Skin: Negative for rash. Neurological: Negative for headaches, weakness or numbness. 10 point ROS negative except as marked above and in HPI. Physical Exam - Vital signs Vitals: Temp Pulse Resp BP Pulse Ox 98.0 F 81 18 127/51 H 96 02/26/20 20:58 09/06/19 20:58 09/06/19 20:58 09/06/19 20:58 09/06/19 20:58 - Notes Notes: GENERAL: Elderly female who appears comfortable at rest but is extremely uncomfortable when there is any movement of the right lower extremity. SKIN: Good turgor no rashes. HEAD: Normocephalic atraumatic. EYES: PERRLA. EOMI. Conjunctivae and sclerae clear. EARS: CANALS AND TMS CLEAR. NOSE: CLEAR. MOUTH: Moist mucosa. Good dentition. No stridor or edema. No drooling. NECK: Supple. No masses or thyromegaly. No adenopathy. Carotids 2+ without bruits. No JVD. BACK: Symmetrical without tenderness. Straight leg raising test is positive at 15 degrees elevation on the right. CHEST: Respirations unlabored. Breath sounds clear and symmetrical. HEART: Regular rhythm. No murmur gallop or rub. ABDOMEN: Soft nontender without masses, organomegaly or rebound. Bowel sounds normally active. No bruits. GENITALIA: Deferred. EXTREMITIES: Patient is very uncomfortable with any active or passive movement of the right hip joint. She is tender laterally over the hip bursa on the right. There is no redness or warmth appreciated. No edema. No calf tenderness. Cap refill less than 1.5 seconds. Dorsalis pedis and posterior tibial pulses 3+ and symmetrical. NEUROLOGICAL: GCS 15. Alert and oriented x3. Normal gait. Fluent speech. Cranial nerves II through XII intact. Sensorimotor and cerebellar normal. Normal tone. Deep tendon reflexes 1+ and symmetrical both lower extremities. PSYCHIATRIC: Appropriate affect. Course - Re-evaluation Re-evalutation: 09/07/19 04:35 Plain films of the hip and pelvis were negative. Clinically I suspect that this lady either had metastatic disease or sciatica. CT of the lumbar spine and pelvis were obtained showing severe degenerative disc disease L3-4-5 L5-S1 levels. No lytic lesions visualized. Patient was given a dose of fentanyl IV with good relief of pain. She subsequently received some Decadron for treatment of sciatica. Very comfortable at this time requesting discharge. I think she can be reasonably followed up outpatient by her primary care physician. - Vital Signs Vital signs: Temp Pulse Resp BP Pulse Ox 98.0 F 87 20 126/60 H 97 09/06/19 20:58 09/07/19 01:14 09/07/19 01:14 09/07/19 01:14 09/07/19 01:14 - Laboratory Result Diagrams: 09/07/19 01:00 09/07/19 01:00 Laboratory results interpreted by me: 09/07/19 09/07/19 01:00 01:00 RBC 3.57 L Hgb 10.4 L Hct 30.4 L RDW 16.3 H BUN 30 H Creatinine 1.26 H Est GFR ( Amer) 50 L Est GFR (MDRD) Non-Af 41 L Glucose 151 H Discharge - Discharge Clinical Impression: Sciatica Condition: Stable Disposition: HOME, SELF-CARE Additional Instructions: Sciatica Your symptoms suggest "sciatica." The pain of sciatica typically radiates down the leg. Numbness in the foot or calf may also occur. Sciatica is caused by irritation of the sciatic nerve or its branches. The irritation can be due to a herniated disk in the spine, swelling and inflammation in the muscles surrounding the sciatic nerve, or direct injury of the nerve itself. Most cases of sciatica will resolve with medical treatment. Bed rest is usually recommended initially. Surgery is only necessary when the condition will not improve with rest and antiinflammatory medication. Muscle relaxers are often given if muscle soreness is present. A CAT scan of the back may be performed if a herniated disk is suspected. Re-examination is necessary if you develop increasing numbness, localized weakness in the foot or ankle, or if the pain does not respond to rest. Return here as needed for new or worsening symptoms: Pain that is worsening or unimproved Uncontrolled vomiting High fever or shaking chills Overall worsening Follow-up with your primary care doctor this week. Take prescribed medication as directed. Prescriptions: Tramadol HCl [Ultram 50 mg Tablet] 50 mg PO Q4HP PRN #12 tab PRN Reason: Referrals: SALVADOR HOFFMAN MD [Primary Care Provider] - Follow up as needed
[2019-09-07 07:01] VITALS: BP 137/60
== END 2019-09-07 07:34 | disposition home or self-care (01) ==
LOC: ER 20:47
DX: M54.30 Sciatica, unspecified side (principal); M25.551 Pain in right hip; M79.651 Pain in right thigh; Z79.899 Other long term (current) drug therapy; Z79.82 Long term (current) use of aspirin; I10 Essential (primary) hypertension; E11.9 Type 2 diabetes mellitus without complications
CPT/HCPCS: 99284; 96374; 96375; 36415; 85025; 80053; 73552; 72170; 72131; 72192; J3010; J2405; J1100